=== PATIENT | female | born 1930 | race Caucasian/White ===

== ENCOUNTER 2019-06-26 01:45 | Inpatient (IN) | payer MEDICARE, OTHER ==
[~2019-06-26] VITALS: Ht 152.4 cm; Wt 55.0 kg
[2019-06-26 01:45] VITALS: Ht 152.4 cm; Wt 55.0 kg
[~2019-06-26 01:45] MED LIST: ACET325T45 PO; AMLO-145 PO; ASCO500C7 PO; ASPI-817 PO; CARV25TA79 PO; DEXA4TAB PO; DOCU250C58 PO; ESOM40CA PO; FURO20TA3 PO; GABA100C14 PO; HYDR-4012 PO; LEVO-86 PO; LOSA100T15 PO; MINE3.5O31 BOTH EYES; MULT-506 PO; SENN-120 PO; TRAM50TA PO
[2019-06-26] MEDS ORDERED: ALBUTEROL/IPRATROPIUM (NEB) 3 ML AMP HHN STA (01:53)
[2019-06-26] MEDS ORDERED: SOD CHLORIDE 0.9% 1,000 ML IV STA (01:54)
[2019-06-26] MEDS ORDERED: CEFEPIME 2GM/50 ML (PMX) 50 ML IVPB STA (01:54)
[2019-06-26] MEDS ORDERED: VANCOMYCIN 1 GM (PMX) 250 ML IVPB ONE (02:00)
--- NOTE | 2019-06-26 03:45 | ERD ---
ER Documentation Chief Complaint Chief Complaint BIB RA 100, C/O SOB, FEVER X TODAY HPI This is a 88-year-old female who was sent from a SNF because of a fever today with cough and shortness of breath. She apparently had low O2 sats in the mid 80s and is why EMS was called. The patient is not in acute respiratory distress, she tells me she is had a cough and difficulty breathing tonight, no chest pain no GI symptoms ROS All systems reviewed and are negative except as per history of present illness. Allergies Allergies: Coded Allergies: No Known Allergy (Unverified , 06/26/19) PMhx/Soc Hx Respiratory Disorders: Yes (ASTHMA) Hx Cardiac Disorders: Yes (HTN, CHF, AVR) Hx Miscellaneous Medical Probl: Yes (ANEMIA, CANCER) Hx Alcohol Use: No Hx Substance Use: No Hx Tobacco Use: No Smoking Status: Never smoker FmHx Family History: No coronary disease Physical Exam Vitals Vital Signs Date Temp Pulse Resp B/P (MAP) Pulse Ox O2 O2 Flow FiO2 Time Delivery Rate 06/26/19 69 20 100 Non 15.0 02:36 Rebreather Mask 06/26/19 97.7 57 24 89/45 (60) 97 Non 15.0 02:30 Rebreather 06/26/19 97 15.0 100 01:57 06/26/19 Non 15 01:47 Rebreather 06/26/19 97.2 62 26 88/53 (65) 100 01:45 Physical Exam Const: Well-developed, well-nourished Head: Atraumatic, normocephalic Eyes: Normal Conjunctiva, PERRLA, EOMI, normal sclera, no nystagmus ENT: Normal External Ears, Nose and Mouth, moist mucus membranes. Neck: Full range of motion. No meningismus, no lymphadenopathy. Resp: Mild increased work of breathing, bilateral diffuse coarse rhonchi o wheezing, rhonchi, rales] Cardio: Regular rate and rhythm, no murmurs, S1 S2 present Abd: Soft, non tender x 4, non distended. Normal bowel sounds, no guarding or rebound, no pulsitile abdominal masses or bruits Skin: No petechiae or rashes, no ecchymosis , no maculopapular rash Back: No midline or flank tenderness Ext: No cyanosis, or edema, FROM x 4, normal inspection, neurovascularly intact x 4 Neur: Awake and alert, STR 5/5 x 4, sensation intact x 4, no focal findings, cerebellum intact Psych: Normal Mood and Affect Result Diagram: 06/26/19 0155 06/26/19 0155 Results 24 hrs Laboratory Tests Test 06/26/19 01:52 06/26/19 01:55 POC Venous Lactate 0.6 mmol/L White Blood Count 4.9 10^3/ul Red Blood Count 2.35 10^6/ul Hemoglobin 7.7 g/dl Hematocrit 24.0 % Mean Corpuscular Volume 102.1 fl Mean Corpuscular Hemoglobin 32.8 pg Mean Corpuscular Hemoglobin Concent 32.1 g/dl Red Cell Distribution Width 15.9 % Platelet Count 90 10^3/UL Mean Platelet Volume 8.7 fl Immature Granulocytes % 0.400 % Neutrophils % % Segmented Neutrophils % (Manual) 30 % Band Neutrophils % (Manual) 26 % Lymphocytes % % Lymphocytes % (Manual) 24 % Monocytes % % Monocytes % (Manual) 15 % Eosinophils % % Basophils % % Basophils % (Manual) 1 % Metamyelocytes % (manual) 1 % Myelocytes % (Manual) 1 % Plasma Cells % (manual) 1 % Nucleated Red Blood Cells % 0.0 /100WBC Immature Granulocytes # 0.020 10^3/ul Neutrophils # 10^3/ul Neutrophils # (Manual) 1.5 10^3/ul Band Neutrophils # 1.2 10^3/ul Lymphocytes (Manual) 1.1 10^3/ul Lymphocytes # 10^3/ul Monocytes # 10^3/ul Monocytes # (Manual) 0.7 10^3/ul Eosinophils # 10^3/ul Basophils # 10^3/ul Basophils # (Manual) 0.0 10^3/ul Metamyelocytes # 0.0 10^3/ul Myelocytes # 0.0 10^3/ul Plasma Cells # (manual) 0.0 10^3/ul Nucleated Red Blood Cells # 10^3/ul Platelet Estimate DECREASED Polychromasia 1+ Poikilocytosis 1+ Ovalocytes 1+ Prothrombin Time 17.4 Sec Prothrombin Time Ratio 1.4 INR International Normalized Ratio 1.41 Activated Partial Thromboplast Time 44.1 Sec Sodium Level 135 mmol/L Potassium Level 3.8 mmol/L Chloride Level 102 mmol/L Carbon Dioxide Level 31 mmol/L Anion Gap 2 Blood Urea Nitrogen 28 mg/dl Creatinine 0.89 mg/dl Est Glomerular Filtrat Rate mL/min mL/min Glucose Level 123 mg/dl Calcium Level 7.7 mg/dl Total Bilirubin 0.6 mg/dl Direct Bilirubin 0.00 mg/dl Indirect Bilirubin 0.6 mg/dl Aspartate Amino Transf (AST/SGOT) 18 IU/L Alanine Aminotransferase (ALT/SGPT) 20 IU/L Alkaline Phosphatase 67 IU/L Troponin I < 0.012 ng/ml B-Type Natriuretic Peptide 2450 PG/ML Total Protein 5.9 g/dl Albumin 2.3 g/dl Globulin 3.60 g/dl Albumin/Globulin Ratio 0.63 Current Medications Medications Dose Sig/Suma Start Time Status Last (Trade) Ordered Route PRN Stop Time Admin Dose Reason Admin Albuterol/ 3 ml ONCE STAT 06/26/19 DC 06/26/19 Ipratropium HHN 01:53 06/26/19 02:35 (Duoneb) 02:21 Cefepime HCl 50 ml @ ONCE STAT 06/26/19 DC 06/26/19 100 mls/hr IVPB 01:54 06/26/19 02:17 02:23 Vancomycin 250 ml @ ONCE ONCE 06/26/19 06/26/19 HCl 125 mls/hr IVPB 02:00 06/26/19 02:46 03:59 Sodium 1,000 ml @ Q1H STAT 06/26/19 DC 06/26/19 Chloride 1,000 mls/hr IV 01:54 06/26/19 02:17 02:53 Procedures/MDM [place] [id number] Radiology Main Line: [phone] DIAGNOSTIC IMAGING REPORT Patient: SHAY RODRIGUEZ : 1930 Age: 88 Sex: F MR #: [id number] DOS: 06/26/19 0154 Ordering MD: ADÁN MONROE DO Location: E/R Room/Bed: PROCEDURE: XR Chest. CLINICAL INDICATION: Sepsis. TECHNIQUE: Single frontal view of the chest. COMPARISON: None. FINDINGS: Cardiomegaly and atherosclerotic calcifications in the thoracic aorta. Bilateral lung base atelectasis versus airspace disease with small pleural effusion. Findings are compatible with bilateral lung base pneumonias, right greater than left. No signs of pneumothorax are seen. Demineralization limits evaluation of fine osseous detail. Otherwise, the osseous structures and soft tissues are unremarkable. IMPRESSION: 1. Bilateral lung base atelectasis versus airspace disease with bilateral small pleural effusions. 2. Airspace disease is right greater than left, and differential considerations include bilateral lung base pneumonias. RPTAT: [facility]U Physician Teri Date Time Electronically viewed and signed by Jonathan Glynn Physician on 06/26/2019 03:05 RS/ CC: ADÁN MONROE DO [id number] EKG: Rate/Rhythm: Normal Sinus Rhythm,NL intervals QRS, ST, QT: NORMAL [place], QRS, QT] Impression: NORMAL EKG Patient has pneumonia. She had blood cultures and was given cefepime and Vanco, her lactic acid is 0.6 will admit to the hospital for pneumonia And hypoxia Departure Diagnosis: Primary Impression: Pneumonia Pneumonia type: due to unspecified organism Laterality: bilateral Lung location: lower lobe of lung Qualified Codes: J18.1 - Lobar pneumonia, unspecified organism Additional Impression: Hypoxia Condition: Stable ADÁN MONROE DO Jun 26, 2019 03:45
[2019-06-26] MEDS ORDERED: ONDANSETRON 4 MG INJ IV PRN ×2 (04:00→10:00)
[2019-06-26] MEDS ORDERED: ACETAMINOPHEN 325 MG TAB PO PRN (04:00)
[2019-06-26] MEDS ORDERED: SOD CHLORIDE 0.9% 1,000 ML IV SCH (09:38)
--- NOTE | 2019-06-26 09:54 | HP ---
Date/Time of Note Date/Time of Note DATE: 06/26/19 TIME: 09:48 Assessment/Plan VTE Prophylaxis Pharmacological prophylaxis: heparin Lines/Catheters IV Catheter Type (from Nrsg): Saline Lock Assessment/Plan Assessment/Plan 1. Hypoxic respiratory failure: Secondary to healthcare associated pneumonia -Patient also with history of asthma -Check ABG -IV antibiotic -Supplemental oxygen, bronchodilators. -Pulmonary to see 2. Hypotension: Resolved. Likely from dehydration. Patient also severely anemic -According to the son, Yeyo, patient takes " a bunch of blood pressure medications". He will be in the hospital, so during the day need to find out list of her medications -IV fluid -Treat pneumonia -Transfuse PRBCs 3. Normocytic anemia -FOBT, ferritin/iron to work-up for GI bleed and iron deficiency -GI consult 4. History of CHF -Check 2D echo 5. Multiple myeloma -According to patient's son, patient takes Palmaris for 21 days alternating with dexamethasone -Oncology/hematology consult during the day -Pain management. Patient has fentanyl patch 6. Thrombocytopenia: No need to transfuse -No obvious active 7. History of AVR: Per son only takes aspirin and no blood thinner Result Diagram: 06/26/19 0155 06/26/19 0155 Results 24hrs Laboratory Tests Test 06/26/19 01:52 06/26/19 01:55 POC Venous Lactate 0.6 White Blood Count 4.9 Red Blood Count 2.35 L Hemoglobin 7.7 L Hematocrit 24.0 L Mean Corpuscular Volume 102.1 H Mean Corpuscular Hemoglobin 32.8 Mean Corpuscular Hemoglobin Concent 32.1 Red Cell Distribution Width 15.9 H Platelet Count 90 L Mean Platelet Volume 8.7 Immature Granulocytes % 0.400 Neutrophils % Segmented Neutrophils % (Manual) 30 L Band Neutrophils % (Manual) 26 H Lymphocytes % Lymphocytes % (Manual) 24 Monocytes % Monocytes % (Manual) 15 H Eosinophils % Basophils % Basophils % (Manual) 1 Metamyelocytes % (manual) 1 H Myelocytes % (Manual) 1 H Plasma Cells % (manual) 1 Nucleated Red Blood Cells % 0.0 Immature Granulocytes # 0.020 Neutrophils # Neutrophils # (Manual) 1.5 L Band Neutrophils # 1.2 H Lymphocytes (Manual) 1.1 Lymphocytes # Monocytes # Monocytes # (Manual) 0.7 Eosinophils # Basophils # Basophils # (Manual) 0.0 Metamyelocytes # 0.0 Myelocytes # 0.0 Plasma Cells # (manual) 0.0 Nucleated Red Blood Cells # Platelet Estimate DECREASED Polychromasia 1+ Poikilocytosis 1+ Ovalocytes 1+ Prothrombin Time 17.4 H Prothrombin Time Ratio 1.4 INR International Normalized Ratio 1.41 Activated Partial Thromboplast Time 44.1 H Sodium Level 135 Potassium Level 3.8 Chloride Level 102 Carbon Dioxide Level 31 Anion Gap 2 L Blood Urea Nitrogen 28 H Creatinine 0.89 Est Glomerular Filtrat Rate mL/min Glucose Level 123 Calcium Level 7.7 L Total Bilirubin 0.6 Direct Bilirubin 0.00 Indirect Bilirubin 0.6 Aspartate Amino Transf (AST/SGOT) 18 Alanine Aminotransferase (ALT/SGPT) 20 Alkaline Phosphatase 67 Troponin I < 0.012 B-Type Natriuretic Peptide 2450 H Total Protein 5.9 L Albumin 2.3 L Globulin 3.60 H Albumin/Globulin Ratio 0.63 HPI/ROS Admit Date/Time Admit Date/Time Hx of Present Illness Patient is an 88-year-old female with a history of hypertension, asthma, CHF, anemia, AVR, multiple myeloma who was sent from [facility] for hypoxia. When presented to ER, her BP was 88/53, respiratory 26. Patient was given IV fluids with improvement in her blood pressure. Patient was also hypoxic with O2 sat in the 80s and has been placed on 15 L nonrebreather mask. Chest x-ray shows Bilateral lung base atelectasis versus airspace disease with bilateral small pleural effusions and airspace disease is right greater than left, and dif ferential considerations include bilateral lung base pneumonias. She was treated with vancomycin and cefepime. Labs shows a hemoglobin of 7.7. I spoke with the patient's son, Yeyo ([phone]). He said the patient has a history of multiple myeloma for which she takes palm for 21 days, alternating with dexamethasone. Patient presented with a minimum of 7.7. He is not aware of history of anemia and a reported no GI bleed. She has a history of AVR, takes aspirin and no blood thinner. PMH/Family/Social Past Medical History Past Surgical Hx: other (see HPI) Family History Significant Family History: other (see HPI) Social History Alcohol Use: see history Smoking Status: see history Drug Use: see history Exam Constitutional: other (No acute Distress) Head: normocephalic, atraumatic Eyes: PERRL Respiratory: normal air movement Cardiovascular: nl pulses Gastrointestinal: soft Extremities: normal pulses Medications Current Medications Ondansetron HCl (Zofran Inj) 4 mg ER BRIDGE PRN IV NAUSEA/VOMITING; Start 06/26/19 at 04:00; Stop 06/27/19 at 03:59 Acetaminophen (Tylenol Tab) 650 mg ER BRIDGE PRN PO .MILD PAIN 1-3 OR TEMP; Start 06/26/19 at 04:00; Stop 06/27/19 at 03:59 Sodium Chloride 1,000 ml @ 70 mls/hr [id number] IV ; Start 06/26/19 at 09:38; Status UNV IV Flush (NS 3 ml) 3 ml PER PROTOCOL IV ; Start 06/26/19 at 10:00; Status UNV Ondansetron HCl (Zofran Inj) 4 mg Q6H PRN IV NAUSEA/VOMITING; Start 06/26/19 at 10:00; Status UNV Acetaminophen (Tylenol Tab) 650 mg Q6H PRN PO .PAIN 1-3 OR TEMP; Start 06/26/19 at 10:00; Status UNV Pantoprazole (Protonix Iv) 40 mg DAILY@06 IV ; Start 06/27/19 at 06:00; Status UNV Albuterol/ Ipratropium (Duoneb) 3 ml Q2H RESP THERAPY PRN HHN SHORTNESS OF BREATH; Start 06/26/19 at 10:00; Status UNV Vancomycin HCl (Vanco Iv Per Pharmacy) VANCOMYCIN PER PHARMACY PER PROTOCOL XX ; Start 06/27/19 at 03:00; Status UNV Cefepime HCl 50 ml @ 100 mls/hr Q12H IVPB ; Start 06/26/19 at 21:00; Status UNV Coded Allergies: No Known Allergy (Unverified , 06/26/19) Social History Smoking Status: Never smoker Exam/Review of Systems Vital Signs Vitals Vital Signs Date Temp Pulse Resp B/P (MAP) Pulse Ox O2 O2 Flow FiO2 Time Delivery Rate 06/26/19 98.1 71 24 111/50 100 High Flow 06:45 (70) Non Rebreather 06/26/19 15.0 06:00 06/26/19 100 01:57 EVETTE CARTER MD Jun 26, 2019 09:54
[2019-06-26] MEDS ORDERED: NACL 0.9% 3 ML SYG IV SCH (10:00)
[2019-06-26] MEDS: PANTOPRAZOLE 40 MG INJ IV SCH (11:00)
--- NOTE | 2019-06-26 11:04 | CONS ---
Assessment/Plan Assessment/Plan Assessment/Plan (Daily) Chest x-ray showing right upper lobe pneumonia. Assessment and recommendations; 1. Patient admitted with bilateral pneumonia with right lower lobe predominance, currently on appropriate antimicrobial regimen. 2. Prior history of AVR. 3. History of multiple myeloma. 4. Anemia and thrombocytopenia. Continue current supportive care. Obtain follow-up chest x-ray in 48 hours. Consultation Date/Type/Reason Admit Date/Time Date of Consultation: Jun 26, 2019 Type of Consult Pulmonary Patient is a pleasant 88-year-old lady who was sent over from retirement to the ER with shortness of breath and hypoxemia. Patient also was hypotensive but was fluid resuscitated with improvement in hemodynamics. Was a time I saw her in ER, patient completely awake and alert and is having lunch on bed. According to her shortness of breath is improving. Patient denies any chest pain fever. Past medical history; 1. History of AVR 2. CHF 3. Multiple myeloma Medications; reviewed Allergies; none Family history; patient lives in retirement with supportive family. Social history; patient never smoked Occupational history; patient has been a housewife Review of systems; denies any headache, seizures. Any chest pain. Shortness of breath is improving. Complains of very mild cough. Denies any abdominal pain, nausea vomiting. Denies any diarrhea or constipation. Denies any urinary symptoms. General exam; elderly woman, awake alert, currently no distress. Date/Time of Note DATE: 06/26/19 TIME: 11:01 Past Medical History Home Meds Reported Medications Artificial Tears* (Akwa Oint*) 3.5 Gm Oint, 1 APPLIC BOTH EYES TID PRN for DRY EYES, #1 TUB 06/26/19 Sennosides* (Senna Lax*) 8.6 Mg Tablet, 1 TAB PO BID, TAB Hold if loose stool. 06/26/19 Esomeprazole Mag Trihydrate (Nexium) 40 Mg Capsule.dr, 40 MG PO AC BREAKFAST, #30 CAP 06/26/19 Losartan Potassium* (Losartan Potassium*) 100 Mg Tablet, 100 MG PO DAILY, TAB Hold if SBP<110. 06/26/19 Levothyroxine Sodium* (Synthroid*) 100 Mcg Tablet, 100 MCG PO AC BREAKFAST, #30 TAB 06/26/19 Hydrocodone/Acetaminophen ([place] 7.5-325 Tablet) 1 Each Tablet, 1 EACH PO DAILY for PAIN, TAB 06/26/19 Acetaminophen* (Acetaminophen*) 325 Mg Tablet, 325 MG PO Q4H PRN for PAIN LEVEL 1-5, #30 TAB 06/26/19 Gabapentin* (Gabapentin*) 100 Mg Capsule, 100 MG PO TID, #90 CAP 06/26/19 Furosemide* (Furosemide*) 20 Mg Tablet, 20 MG PO, #30 TAB 1 tab oral Q Wednesday. 06/26/19 Docusate Sodium* (Colace*) 250 Mg Capsule, 250 MG PO BID, #60 CAP Hold if loose stool. 06/26/19 Dexamethasone* (Dexamethasone*) 4 Mg Tablet, 40 MG PO, TAB Dexamethasone 40MG oral Q Wednesday. 06/26/19 Carvedilol* (Carvedilol*) 25 Mg Tablet, 25 MG PO BID WITH MEALS, #60 TAB HOLD IF SBP<110. 06/26/19 Aspirin* (Aspirin* EC) 81 Mg Tablet.dr, 81 MG PO WITH BREAKFAST, TAB QAM WITH FOOD. 06/26/19 Amlodipine Besylate* (Amlodipine Besylate*) 5 Mg Tablet, 5 MG PO BID, #30 TAB HOLD IF SBP<110. 06/26/19 Multivitamin with Minerals (Multiple Vitamin) 1 Each Tablet, 1 EACH PO QAM, TAB 06/26/19 Ascorbic Acid* (Vitamin C*) 500 Mg Capsule.sa, 500 MG PO DAILY for 30 Days, CAP 06/26/19 Medications Current Medications Sodium Chloride 1,000 ml @ 70 mls/hr [id number] IV ; Start 06/26/19 at 09:38 IV Flush (NS 3 ml) 3 ml PER PROTOCOL IV ; Start 06/26/19 at 10:00 Ondansetron HCl (Zofran Inj) 4 mg Q6H PRN IV NAUSEA/VOMITING; Start 06/26/19 at 10:00 Acetaminophen (Tylenol Tab) 650 mg Q6H PRN PO .PAIN 1-3 OR TEMP; Start 06/26/19 at 10:00 Pantoprazole (Protonix Iv) 40 mg DAILY@06 IV ; Start 06/26/19 at 11:00 Albuterol/ Ipratropium (Duoneb) 3 ml Q2H RESP THERAPY PRN HHN SHORTNESS OF BREATH; Start 06/26/19 at 10:00 Vancomycin HCl (Vanco Iv Per Pharmacy) VANCOMYCIN PER PHARMACY PER PROTOCOL XX ; Start 06/27/19 at 03:00 Cefepime HCl 50 ml @ 100 mls/hr Q12H IVPB ; Start 06/26/19 at 14:00 Aspirin (Halfprin) 81 mg DAILY PO ; Start 06/27/19 at 09:00 Allergies: Coded Allergies: No Known Allergy (Unverified , 06/26/19) Social History Smoking Status: Never smoker Exam/Review of Systems Exam Vitals Vital Signs Date Temp Pulse Resp B/P (MAP) Pulse Ox O2 O2 Flow FiO2 Time Delivery Rate 06/26/19 98.1 71 24 111/50 100 High Flow 06:45 (70) Non Rebreather 06/26/19 15.0 06:00 06/26/19 100 01:57 Exam H EENT exam; supple neck, no JVD. No lymphadenopathy. Midline trachea. No thyromegaly. Patient has dentures in place. Pupils are midsize bilaterally. No neck masses. Chest exam; diminished breath sound lung bases upper lobes are clear S1-S2 au dible, no murmurs. Regular rhythm. There is a well-healed sternal scar. Abdomen exam; soft, nontender. No organomegaly. Bowel sounds are audible. Extremity exam; no peripheral edema clubbing. Pulses 1+. PARTS PICKER exam; no focal deficit. Results Result Diagram: 06/26/19 0155 06/26/19 0155 Results 24hrs Laboratory Tests Test 06/26/19 01:52 06/26/19 01:55 06/26/19 09:47 POC Venous Lactate 0.6 White Blood Count 4.9 Red Blood Count 2.35 L Hemoglobin 7.7 L Hematocrit 24.0 L Mean Corpuscular Volume 102.1 H Mean Corpuscular Hemoglobin 32.8 Mean Corpuscular 32.1 Hemoglobin Concent Red Cell Distribution Width 15.9 H Platelet Count 90 L Mean Platelet Volume 8.7 Immature Granulocytes % 0.400 Neutrophils % Segmented Neutrophils 30 L % (Manual) Band Neutrophils % (Manual) 26 H Lymphocytes % Lymphocytes % (Manual) 24 Monocytes % Monocytes % (Manual) 15 H Eosinophils % Basophils % Basophils % (Manual) 1 Metamyelocytes % (manual) 1 H Myelocytes % (Manual) 1 H Plasma Cells % (manual) 1 Nucleated Red Blood Cells % 0.0 Immature Granulocytes # 0.020 Neutrophils # Neutrophils # (Manual) 1.5 L Band Neutrophils # 1.2 H Lymphocytes (Manual) 1.1 Lymphocytes # Monocytes # Monocytes # (Manual) 0.7 Eosinophils # Basophils # Basophils # (Manual) 0.0 Metamyelocytes # 0.0 Myelocytes # 0.0 Plasma Cells # (manual) 0.0 Nucleated Red Blood Cells # Platelet Estimate DECREASED Polychromasia 1+ Poikilocytosis 1+ Ovalocytes 1+ Prothrombin Time 17.4 H Prothrombin Time Ratio 1.4 INR International 1.41 Normalized Ratio Activated Partial Thromboplast 44.1 H Time Sodium Level 135 Potassium Level 3.8 Chloride Level 102 Carbon Dioxide Level 31 Anion Gap 2 L Blood Urea Nitrogen 28 H Creatinine 0.89 Est Glomerular Filtrat Rate mL/min Glucose Level 123 Calcium Level 7.7 L Total Bilirubin 0.6 Direct Bilirubin 0.00 Indirect Bilirubin 0.6 Aspartate Amino 18 Transf (AST/SGOT) Alanine 20 Aminotransferase (ALT/SGPT) Alkaline Phosphatase 67 Troponin I < 0.012 B-Type Natriuretic Peptide 2450 H Total Protein 5.9 L Albumin 2.3 L Globulin 3.60 H Albumin/Globulin Ratio 0.63 Blood Gas Specimen Source Blood arterial Arterial Blood Date Drawn 06/26/2019 10:21:58 AM Arterial Blood pH 7.378 (Temp corrected) Arterial Blood pCO2 47.2 H (Temp correct) Arterial Blood pO2 97.7 H (Temp corrected) Arterial Blood HCO3 27.2 H Arterial Blood Base Excess 1.6 Arterial Blood 95.5 Oxygen Saturation Cuate Test ACCEPTAB Arterial Blood Gas Right Radial Puncture Site Arterial 0.3 Blood Carboxyhemoglobin Arterial Blood Methemoglobin 0.2 Blood Gas A-a O2 Differential 568.1 H Oxyhemoglobin Percent 95.0 Blood Gas Temperature 37.0 Blood Gas Modality MASK - NRB FiO2 100.0 Blood Gas Notified Whom RT Blood Gas Notified Time 06/26/2019 10:32:26 AM Medications Medication Current Medications Sodium Chloride 1,000 ml @ 70 mls/hr [id number] IV ; Start 06/26/19 at 09:38 IV Flush (NS 3 ml) 3 ml PER PROTOCOL IV ; Start 06/26/19 at 10:00 Ondansetron HCl (Zofran Inj) 4 mg Q6H PRN IV NAUSEA/VOMITING; Start 06/26/19 at 10:00 Acetaminophen (Tylenol Tab) 650 mg Q6H PRN PO .PAIN 1-3 OR TEMP; Start 06/26/19 at 10:00 Pantoprazole (Protonix Iv) 40 mg DAILY@06 IV ; Start 06/26/19 at 11:00 Albuterol/ Ipratropium (Duoneb) 3 ml Q2H RESP THERAPY PRN HHN SHORTNESS OF BREATH; Start 06/26/19 at 10:00 Vancomycin HCl (Vanco Iv Per Pharmacy) VANCOMYCIN PER PHARMACY PER PROTOCOL XX ; Start 06/27/19 at 03:00 Cefepime HCl 50 ml @ 100 mls/hr Q12H IVPB ; Start 06/26/19 at 14:00 Aspirin (Halfprin) 81 mg DAILY PO ; Start 06/27/19 at 09:00 AMANDA KNOX Jun 26, 2019 11:04
[2019-06-26] MEDS: CEFEPIME 1GM/50 ML (PMX) 50 ML IVPB SCH (14:18)
[2019-06-26] MEDS: ACETAMINOPHEN 325 MG TAB PO PRN (16:47)
--- NOTE | 2019-06-26 17:18 | PN ---
Date/Time of Note Date/Time of Note DATE: 06/26/19 TIME: 17:08 Assessment/Plan VTE Prophylaxis SCD applied (from Nsg): Yes Pharmacological prophylaxis: NA/contraindicated Pharm contraindication: other Lines/Catheters IV Catheter Type (from Nrsg): Saline Lock Assessment/Plan Assessment/Plan 1. Acute hypoxic respiratory failure secondary to Healthcare associated pneumonia - CXR noted and will continue on high flow. Wean as tolerated to maintain saturations >90% - Pulmonology consultation appreciated and continue current treatment. will repeat CXR in 48 hours - continue IV antibiotics and Nebs 2. Acute hypotension - improved after volume resuscitation - will d/c IVF given elevated BNP and encourage PO hydration - hold all antihypertensive medications 3. Normocytic anemia - will check iron studies and FOBT to rule out GI source - no need for transfusion at this time - patient on medication for multiple myeloma which may be contributing 4. History of heart failure - Elevated BNP noted - will check ECHO to assess EF - continue on Lasix 5. h/o Multiple myeloma - according to patient's son, patient takes Palmaris for 21 days alternating with dexamethasone. will need to touch base on what she is currently on at this time - Pain management. Patient has fentanyl patch 6. Thrombocytopenia - monitor - no need for transfusions at this time as no active bleeding appreciated 7. History of AVR - Per son only takes aspirin and no blood thinner 8. hypertension - holding home BP meds at this time and will restart as tolerated 9. Disposition - Continue monitoring in telemetry while requiring high flow Result Diagram: 06/26/19 0155 06/26/19 0155 Results 24hrs Laboratory Tests Test 06/26/19 01:52 06/26/19 01:55 06/26/19 09:47 POC Venous Lactate 0.6 White Blood Count 4.9 Red Blood Count 2.35 L Hemoglobin 7.7 L Hematocrit 24.0 L Mean Corpuscular Volume 102.1 H Mean Corpuscular Hemoglobin 32.8 Mean Corpuscular 32.1 Hemoglobin Concent Red Cell Distribution Width 15.9 H Platelet Count 90 L Mean Platelet Volume 8.7 Immature Granulocytes % 0.400 Neutrophils % Segmented Neutrophils 30 L % (Manual) Band Neutrophils % (Manual) 26 H Lymphocytes % Lymphocytes % (Manual) 24 Monocytes % Monocytes % (Manual) 15 H Eosinophils % Basophils % Basophils % (Manual) 1 Metamyelocytes % (manual) 1 H Myelocytes % (Manual) 1 H Plasma Cells % (manual) 1 Nucleated Red Blood Cells % 0.0 Immature Granulocytes # 0.020 Neutrophils # Neutrophils # (Manual) 1.5 L Band Neutrophils # 1.2 H Lymphocytes (Manual) 1.1 Lymphocytes # Monocytes # Monocytes # (Manual) 0.7 Eosinophils # Basophils # Basophils # (Manual) 0.0 Metamyelocytes # 0.0 Myelocytes # 0.0 Plasma Cells # (manual) 0.0 Nucleated Red Blood Cells # Platelet Estimate DECREASED Polychromasia 1+ Poikilocytosis 1+ Ovalocytes 1+ Prothrombin Time 17.4 H Prothrombin Time Ratio 1.4 INR International 1.41 Normalized Ratio Activated Partial Thromboplast 44.1 H Time Sodium Level 135 Potassium Level 3.8 Chloride Level 102 Carbon Dioxide Level 31 Anion Gap 2 L Blood Urea Nitrogen 28 H Creatinine 0.89 Est Glomerular Filtrat Rate mL/min Glucose Level 123 Calcium Level 7.7 L Total Bilirubin 0.6 Direct Bilirubin 0.00 Indirect Bilirubin 0.6 Aspartate Amino 18 Transf (AST/SGOT) Alanine 20 Aminotransferase (ALT/SGPT) Alkaline Phosphatase 67 Troponin I < 0.012 B-Type Natriuretic Peptide 2450 H Total Protein 5.9 L Albumin 2.3 L Globulin 3.60 H Albumin/Globulin Ratio 0.63 Blood Gas Specimen Source Blood arterial Arterial Blood Date Drawn 06/26/2019 10:21:58 AM Arterial Blood pH 7.378 (Temp corrected) Arterial Blood pCO2 47.2 H (Temp correct) Arterial Blood pO2 97.7 H (Temp corrected) Arterial Blood HCO3 27.2 H Arterial Blood Base Excess 1.6 Arterial Blood 95.5 Oxygen Saturation Cuate Test ACCEPTAB Arterial Blood Gas Right Radial Puncture Site Arterial 0.3 Blood Carboxyhemoglobin Arterial Blood Methemoglobin 0.2 Blood Gas A-a O2 Differential 568.1 H Oxyhemoglobin Percent 95.0 Blood Gas Temperature 37.0 Blood Gas Modality MASK - NRB FiO2 100.0 Blood Gas Notified Whom RT Blood Gas Notified Time 06/26/2019 10:32:26 AM Subjective 24 Hr Interval Summary Free Text/Dictation Patient more comfortable and no acute distress noted. Denies any worsening respiratory symptoms and tolerating PO intake. Per nursing, continues to remove high flow and desaturates to the 70s. Exam/Review of Systems Exam Vitals Vital Signs Date Temp Pulse Resp B/P (MAP) Pulse Ox O2 O2 Flow FiO2 Time Delivery Rate 06/26/19 93 80 15:42 06/26/19 73 20 118/48 High Flow 14:00 (71) Nasal Cannula 06/26/19 98.2 15.0 12:00 Exam General: Patient is sitting up in bed and answers questions appropriately Head: Normocephalic atraumatic Eyes: EOMI, pupils reactive to light Neck: Supple Respiratory: Coarse breath sounds bilaterally. no wheezing Cardiovascular: S1, S2, regular rate and rhythm, no obvious murmurs Gastrointestinal:soft, nontender palpation, nondistended, bowel sounds heard. no rebound or guarding Ext: Moves all extremities spontaneously. no edema appreciated Skin: No new skin lesions Results Results 24hrs Laboratory Tests Test 06/26/19 01:52 06/26/19 01:55 06/26/19 09:47 POC Venous Lactate 0.6 White Blood Count 4.9 Red Blood Count 2.35 L Hemoglobin 7.7 L Hematocrit 24.0 L Mean Corpuscular Volume 102.1 H Mean Corpuscular Hemoglobin 32.8 Mean Corpuscular 32.1 Hemoglobin Concent Red Cell Distribution Width 15.9 H Platelet Count 90 L Mean Platelet Volume 8.7 Immature Granulocytes % 0.400 Neutrophils % Segmented Neutrophils 30 L % (Manual) Band Neutrophils % (Manual) 26 H Lymphocytes % Lymphocytes % (Manual) 24 Monocytes % Monocytes % (Manual) 15 H Eosinophils % Basophils % Basophils % (Manual) 1 Metamyelocytes % (manual) 1 H Myelocytes % (Manual) 1 H Plasma Cells % (manual) 1 Nucleated Red Blood Cells % 0.0 Immature Granulocytes # 0.020 Neutrophils # Neutrophils # (Manual) 1.5 L Band Neutrophils # 1.2 H Lymphocytes (Manual) 1.1 Lymphocytes # Monocytes # Monocytes # (Manual) 0.7 Eosinophils # Basophils # Basophils # (Manual) 0.0 Metamyelocytes # 0.0 Myelocytes # 0.0 Plasma Cells # (manual) 0.0 Nucleated Red Blood Cells # Platelet Estimate DECREASED Polychromasia 1+ Poikilocytosis 1+ Ovalocytes 1+ Prothrombin Time 17.4 H Prothrombin Time Ratio 1.4 INR International 1.41 Normalized Ratio Activated Partial Thromboplast 44.1 H Time Sodium Level 135 Potassium Level 3.8 Chloride Level 102 Carbon Dioxide Level 31 Anion Gap 2 L Blood Urea Nitrogen 28 H Creatinine 0.89 Est Glomerular Filtrat Rate mL/min Glucose Level 123 Calcium Level 7.7 L Total Bilirubin 0.6 Direct Bilirubin 0.00 Indirect Bilirubin 0.6 Aspartate Amino 18 Transf (AST/SGOT) Alanine 20 Aminotransferase (ALT/SGPT) Alkaline Phosphatase 67 Troponin I < 0.012 B-Type Natriuretic Peptide 2450 H Total Protein 5.9 L Albumin 2.3 L Globulin 3.60 H Albumin/Globulin Ratio 0.63 Blood Gas Specimen Source Blood arterial Arterial Blood Date Drawn 06/26/2019 10:21:58 AM Arterial Blood pH 7.378 (Temp corrected) Arterial Blood pCO2 47.2 H (Temp correct) Arterial Blood pO2 97.7 H (Temp corrected) Arterial Blood HCO3 27.2 H Arterial Blood Base Excess 1.6 Arterial Blood 95.5 Oxygen Saturation Cuate Test ACCEPTAB Arterial Blood Gas Right Radial Puncture Site Arterial 0.3 Blood Carboxyhemoglobin Arterial Blood Methemoglobin 0.2 Blood Gas A-a O2 Differential 568.1 H Oxyhemoglobin Percent 95.0 Blood Gas Temperature 37.0 Blood Gas Modality MASK - NRB FiO2 100.0 Blood Gas Notified Whom RT Blood Gas Notified Time 06/26/2019 10:32:26 AM Medications Medication Current Medications IV Flush (NS 3 ml) 3 ml PER PROTOCOL IV ; Start 06/26/19 at 10:00 Ondansetron HCl (Zofran Inj) 4 mg Q6H PRN IV NAUSEA/VOMITING; Start 06/26/19 at 10:00 Acetaminophen (Tylenol Tab) 650 mg Q6H PRN PO .PAIN 1-3 OR TEMP Last adminis tered on 06/26/19at 16:47; Admin Dose 650 MG; Start 06/26/19 at 10:00 Pantoprazole (Protonix Iv) 40 mg DAILY@06 IV Last administered on 06/26/19at 11:00; Admin Dose 40 MG; Start 06/26/19 at 11:00 Albuterol/ Ipratropium (Duoneb) 3 ml Q2H RESP THERAPY PRN HHN SHORTNESS OF BREATH; Start 06/26/19 at 10:00 Vancomycin HCl (Vanco Iv Per Pharmacy) VANCOMYCIN PER PHARMACY PER PROTOCOL XX ; Start 06/27/19 at 03:00 Cefepime HCl 50 ml @ 100 mls/hr Q12H IVPB Last administered on 06/26/19at 14:18; Admin Dose 100 MLS/HR; Start 06/26/19 at 14:00 Aspirin (Halfprin) 81 mg DAILY PO ; Start 06/27/19 at 09:00 DEVEN PORRAS MD Jun 26, 2019 17:18
[2019-06-26] MEDS ORDERED: OCULAR LUBRICANT 3.5 GM OPH OINT BOTH EYES PRN (17:30)
[2019-06-26] MEDS ORDERED: traMADol 50 MG TAB PO PRN (17:30)
[2019-06-26 20:00] VITALS: BP 130/60; PULSE 68; PULSE 70; RESP 19
[2019-06-26 20:55] VITALS: BP 130/60; RESP 19
[2019-06-26] MEDS: GABAPENTIN 100 MG CAP PO SCH (21:04)
[2019-06-26] MEDS: DOCUSATE SODIUM 250 MG CAP PO SCH (21:04)
[2019-06-27] VITALS (7 sets, daily range): BP systolic 127–172; BP diastolic 58–81; PULSE 72–101; RESP 18–22
[2019-06-27] MEDS ORDERED: VANCOMYCIN IV PER PHARMACY XX SCH (03:00)
[2019-06-27] MEDS: CEFEPIME 1GM/50 ML (PMX) 50 ML IVPB SCH ×2 (03:03→13:29)
[2019-06-27] MEDS: VANCOMYCIN 750 MG (PMX) 250 ML IVPB SCH (03:33)
[2019-06-27] MEDS: ALBUTEROL/IPRATROPIUM (NEB) 3 ML AMP HHN PRN (05:24)
[2019-06-27] MEDS: PANTOPRAZOLE 40 MG INJ IV SCH (06:35)
[2019-06-27] MEDS: LEVOTHYROXINE 100 MCG TAB PO SCH (06:35)
[2019-06-27] MEDS: ASCORBIC ACID 500 MG TAB PO SCH (08:41)
[2019-06-27] MEDS: ASPIRIN (EC) 81 MG TAB PO SCH (08:41)
[2019-06-27] MEDS: DOCUSATE SODIUM 250 MG CAP PO SCH ×2 (08:41→21:10)
[2019-06-27] MEDS: hydrALAzine 20 MG INJ IV PRN (08:42)
[2019-06-27] MEDS: GABAPENTIN 100 MG CAP PO SCH ×3 (08:43→21:10)
[2019-06-27] MEDS ORDERED: FUROSEMIDE 20 MG TAB PO SCH (09:00)
[2019-06-27] MEDS ORDERED: POTASSIUM CHLORIDE 20 MEQ POWDER FOR ORAL SOLN PO ONE (09:00)
[2019-06-27] MEDS: AMLODIPINE 5 MG TAB PO SCH ×2 (09:56→21:10)
[2019-06-27] MEDS: LOSARTAN 50 MG TAB PO SCH (09:57)
[2019-06-27] MEDS: FENTAnyl PATCH 12 MCG/HR TRANSDERM SCH (10:07)
[2019-06-27] MEDS ORDERED: FUROSEMIDE 20 MG INJ IV SCH (10:30)
--- NOTE | 2019-06-27 12:09 | CONS ---
Consult Date/Type/Reason Admit Date/Time Jun 26, 2019 at 19:19 Initial Consult Date 06/26/19 Type of Consult Pulmonary Date/Time of Note DATE: 06/27/19 TIME: 12:06 Subjective Continues high flow 100% 25 L/min. Still has moderate secretions requiring frequent pulmonary toilet. Objective Vital Signs Date Temp Pulse Resp B/P (MAP) Pulse Ox O2 O2 Flow FiO2 Time Delivery Rate 06/27/19 97.8 97 22 150/69 98 High Flow 11:12 (96) 06/27/19 20.0 70 05:26 Intake and Output 06/26/19 06/26/19 06/27/19 1515:00 23:00 07:00 IntakeIntake Total 120 ml BalanceBalance 120 ml Exam GENERAL: Elderly appearing lady on high flow O2 VITAL SIGNS: per chart NECK: Supple. No JVD or lymphadenopathy. CARDIAC EXAM: S1, S2. No added sounds or murmurs. CHEST: Diminished air entry bilaterally ABDOMEN: Soft, nontender. No guarding or rebound. EXTREMITIES: No cyanosis, clubbing or edema. NEUROLOGIC: Generalized weakness. No focal deficits. Vent Setting Fraction of Inspired Oxygen pe: 70 Results/Medications Result Diagram: 06/27/19 0516 06/27/19 0516 Results 24 hrs Laboratory Tests Test 06/27/19 05:16 White Blood Count 6.7 # Red Blood Count 3.01 #L Hemoglobin 9.6 #L Hematocrit 30.9 #L Mean Corpuscular Volume 102.7 H Mean Corpuscular Hemoglobin 31.9 Mean Corpuscular Hemoglobin Concent 31.1 L Red Cell Distribution Width 15.7 H Platelet Count 148 # Mean Platelet Volume 8.9 Immature Granulocytes % 2.100 H Neutrophils % Segmented Neutrophils % (Manual) 39 Band Neutrophils % (Manual) 26 H Lymphocytes % Lymphocytes % (Manual) 14 L Monocytes % Monocytes % (Manual) 13 H Eosinophils % Eosinophils % (Manual) 3 Basophils % Metamyelocytes % (manual) 2 H Myelocytes % (Manual) 3 H Nucleated Red Blood Cells % 1 H Immature Granulocytes # 0.140 H Neutrophils # Neutrophils # (Manual) 2.7 Band Neutrophils # 1.7 H Lymphocytes (Manual) 0.9 Lymphocytes # Monocytes # Monocytes # (Manual) 0.8 Eosinophils # Basophils # Metamyelocytes # 0.1 H Myelocytes # 0.2 H Nucleated Red Blood Cells # Platelet Estimate NORMAL Giant Platelets 1 H Poikilocytosis 1+ Anisocytosis 1+ Macrocytosis 1+ Sodium Level 142 Potassium Level 3.5 Chloride Level 109 Carbon Dioxide Level 29 Anion Gap 4 L Blood Urea Nitrogen 18 # Creatinine 0.60 Est Glomerular Filtrat Rate mL/min Glucose Level 112 Hemoglobin A1c 5.3 Calcium Level 8.6 Magnesium Level 1.8 Iron Level 20 L Total Iron Binding Capacity 162 L Percent Iron Saturation 12 L Ferritin 298.0 H Total Bilirubin 0.4 Direct Bilirubin 0.00 Indirect Bilirubin 0.4 Aspartate Amino Transf (AST/SGOT) 12 L Alanine Aminotransferase (ALT/SGPT) 16 Alkaline Phosphatase 88 Total Protein 7.0 # Albumin 2.7 L Globulin 4.30 H Albumin/Globulin Ratio 0.62 Triglycerides Level 85 Cholesterol Level 105 LDL Cholesterol, Calculated 66 HDL Cholesterol 22 L Cholesterol/HDL Ratio 4.7 Thyroid Stimulating Hormone (TSH) 1.060 Medications Current Medications IV Flush (NS 3 ml) 3 ml PER PROTOCOL IV ; Start 06/26/19 at 10:00 Ondansetron HCl (Zofran Inj) 4 mg Q6H PRN IV NAUSEA/VOMITING; Start 06/26/19 at 10:00 Acetaminophen (Tylenol Tab) 650 mg Q6H PRN PO .PAIN 1-3 OR TEMP Last administered on 06/26/19at 16:47; Admin Dose 650 MG; Start 06/26/19 at 10:00 Pantoprazole (Protonix Iv) 40 mg DAILY@06 IV Last administered on 06/27/19at 06:35; Admin Dose 40 MG; Start 06/26/19 at 11:00 Albuterol/ Ipratropium (Duoneb) 3 ml Q2H RESP THERAPY PRN HHN SHORTNESS OF BREATH Last administered on 06/27/19at 05:24; Admin Dose 3 ML; Start 06/26/19 at 10:00 Vancomycin HCl (Vanco Iv Per Pharmacy) VANCOMYCIN PER PHARMACY PER PROTOCOL XX ; Start 06/27/19 at 03:00 Cefepime HCl 50 ml @ 100 mls/hr Q12H IVPB Last administered on 06/27/19at 03:03; Admin Dose 100 MLS/HR; Start 06/26/19 at 14:00 Aspirin (Halfprin) 81 mg DAILY PO Last administered on 06/27/19at 08:41; Admin Dose 81 MG; Start 06/27/19 at 09:00 Eye Lubricant (Akwa Oint) 1 applic TID PRN BOTH EYES DRY EYES; Start 06/26/19 at 17:30 Ascorbic Acid (Vitamin C) 500 mg DAILY PO Last administered on 06/27/19 08:41; Admin Dose 500 MG; Start 06/27/19 at 09:00 Docusate Sodium (Colace) 250 mg BID PO Last administered on 06/27/19 08:41; Admin Dose 250 MG; Start 06/26/19 at 21:00 Gabapentin (Neurontin) 100 mg TID PO Last administered on 06/27/19 08:43; Admin Dose 100 MG; Start 06/26/19 at 21:00 Levothyroxine Sodium (Synthroid) 100 mcg AC BREAKFAST PO Last administered on 06/27/19 06:35; Admin Dose 100 MCG; Start 06/27/19 at 07:00 Tramadol HCl (Ultram) 50 mg Q6H PRN PO PAIN Last administered on 06/27/19 04:12; Admin Dose 50 MG; Start 06/26/19 at 17:30 Vancomycin/Sodium Chloride 250 ml @ 125 mls/hr Q24H IVPB Last administered on 06/27/19 03:33; Admin Dose 125 MLS/HR; Start 06/27/19 at 03:00 Fentanyl (Duragesic 12 Mcg/Hr Patch) 1 patch Q72H TRANSDERM Last administered on 06/27/19 10:07; Admin Dose 1 PATCH; Start 06/27/19 at 10:00 Hydralazine HCl (Apresoline) 10 mg Q6H PRN IV HTN Last administered on 06/27/19 08:42; Admin Dose 10 MG; Start 06/27/19 at 04:00 Amlodipine Besylate (Norvasc) 5 mg BID PO Last administered on 06/27/19 09:56; Admin Dose 5 MG; Start 06/27/19 at 09:00 Carvedilol (Coreg) 25 mg BID WITH MEALS PO Last administered on 06/27/19 09:57; Admin Dose 25 MG; Start 06/27/19 at 09:00 Losartan Potassium (Cozaar) 100 mg DAILY PO Last administered on 06/27/19 09:57; Admin Dose 100 MG; Start 06/27/19 at 09:00 Miscellaneous Information (*Rx Drug Level Order Reminder*) VANCOMYCIN TROUGH 06/29 AT 0200 0200 ONCE XX ; Start 06/29/19 at 02:00; Stop 06/29/19 at 02:01 Furosemide (Lasix) 20 mg BID DIURETICS IV Last administered on 06/27/19at 11:26; Admin Dose 20 MG; Start 06/27/19 at 10:30 Ferric Sodium Gluconate Complex 125 mg/Sodium Chloride 110 ml @ 110 mls/hr DAILY@1300 IVPB ; Start 06/27/19 at 13:00; Stop 07/01/19 at 13:59 Assessment/Plan Hospital Course (Demo Recall) Assessment 1. Bilateral pneumonia and congestive cardiac failure with severe hypoxic respiratory failure 2. Possible aspiration component 3. Multiple myeloma Plan 1. Continue supplemental O2 2. Continue antibiotics and diuretics 3. aspiration precautions Consider palliative care evaluation is overall prognosis guarded MATIAS HOPE MD, [facility] Jun 27, 2019 12:09
[2019-06-27] MEDS: SOD FERRIC GLUC COMPLX 125 MG in SOD CHLORIDE 0.9% 100 ML IVPB SCH (13:28)
--- NOTE | 2019-06-27 14:55 | RADRPT ---
Echocardiogram Report Patient Name: Trav RODRIGUEZ ID: [id number] : 1930 (88y 6m)Study Date: 06/27/2019 9:18:38 AM Gender: FAccession #: [id number] Tech: Sachin Calderon [facility] Location: [address] Ref.Physician: DEVEN PORRAS Height(Cm): BSA: Weight(Kg): Quality: AdequateOrder Physician: DEVEN PORRAS Account #: Procedures: Echocardiographic Report: Transthoracic echocardiogram with complete 2D, M-Mode, and doppler examination. Indications: Evaluate Left Ventricular function. Measurements: 2D/M Mode Doppler Measurement Value Normal Range Measurement Value Normal Range LVIDd 2D 3.8 [ 3.8 - 5.2 ] cm AV Mean Brayden 1.4 [ 70.0 - 90.0 ] cm/sec LVIDs 2D 2.5 [ 2.2 - 3.5 ] cm AV Mean PG 9.0 [ 2.0 - 4.0 ] mmHg LVPWd 2D 1.0 [ 0.6 - 0.9 ] cm AV VTI 43.3 cm IVSd 2D 1.5 [ 0.6 - 0.9 ] cm LVOT Peak Brayden 1.2 [ 70.0 - 110.0 ] cm/sec AoR Diam 2D 2.4 [ 2.3 - 3.1 ] cm LVOT Peak PG 6.0 [ 2.0 - 6.0 ] mmHg EDV 2D 61.2 [ 46.0 - 106.0 ] ml MV E Peak Brayden 1.7 [ 60.0 - 130.0 ] cm/sec ESV 2D 22.1 [ 14.0 - 42.0 ] ml MV A Peak Brayden 1.9 [ 100.0 - 120.0 ] cm/sec EF 2D 63.9 [ 54.0 - 74.0 ] percent MV E/A 0.9 [ 0.8 - 1.5 ] ratio LA Dimen 2D 4.7 [ 2.7 - 3.8 ] cm MV Peak Brayden 2.3 [ 60.0 - 130.0 ] cm/sec MV Peak PG 22.0 [ 1.0 - 10.0 ] mmHg MV Mean Brayden 1.6 cm/sec MV Mean PG 12.0 mmHg MV Decel Time 218 [ 104 - 258 ] msec MV E/A 0.9 [ 0.8 - 1.5 ] ratio MV VTI 50.2 cm TR Peak Brayden 3.6 [ 100.0 - 280.0 ] cm/sec TR Peak PG 52.0 mmHg RVSP 60.0 [ 10.0 - 36.0 ] mmHg RA Pressure 8.0 mmHg Findings: Left Ventricle: Normal left ventricular systolic function. Normal left ventricular cavity size. Mild concentric left ventricular hypertrophy. Moderate basal septal hypertrophy. Ejection fraction is visually estimated at 65 %. Tissue Doppler/Mitral Doppler indices are indeterminate in this study due to the presence of mitral stenosis. Right Ventricle: Normal right ventricular size. Normal right ventricular systolic function. Left Atrium: There is severe enlargement of left atrium. Right Atrium: There is moderate enlargement of right atrium. Mitral Valve: Moderate mitral leaflet calcification. Severe mitral annular calcification. Mild mitral valve regurgitation. Moderate to severe mitral stenosis. Mitral valve Max Velocity 2.32 m/sec. MaxPG 22.00 mmHg. MeanPG 12.00 mmHg. Mitral Valve Area by PHT 1.60 cm2. Aortic Valve: Aortic Valve Bio Prosthesis. Gradients normal for valve type and size. Aortic valve Max velocity 1.99 m/sec. Max PG 15.90 mmHg. Mean PG 9.00 mmHg. Trace aortic valve regurgitation. Tricuspid Valve: The estimated Peak RVSP is 60 mmHg. There is mild to moderate tricuspid regurgitation. Pulmonic Valve: Pulmonic valve not well visualized. Pericardium: Trivial pericardial effusion. Bilateral Pleural effusion seen. Aorta: Normal aortic root. IVC: Dilated IVC with respiratory collapse consistent with elevated right atrial pressure. Conclusions: Normal left ventricular systolic function. Normal left ventricular cavity size. Mild concentric left ventricular hypertrophy. Moderate basal septal hypertrophy. Ejection fraction is visually estimated at 65 %. Tissue Doppler/Mitral Doppler indices are indeterminate in this study due to the presence of mitral stenosis. Aortic Valve Bio Prosthesis. Gradients normal for valve type and size. Severe mitral annular calcification. Moderate to severe mitral stenosis. Mitral valve Max Velocity 2.32 m/sec. MaxPG 22.00 mmHg. MeanPG 12.00 mmHg. Mitral Valve Area by PHT 1.60 cm2. There is mild to moderate tricuspid regurgitation. The estimated Peak RVSP is 60 mmHg. Dilated IVC with respiratory collapse consistent with elevated right atrial pressure. Electronically Signed By: Sumit Godwin 2019-06-27 14:55:12 PDT
--- NOTE | 2019-06-27 15:27 | PN ---
Date/Time of Note Date/Time of Note DATE: 06/27/19 TIME: 15:20 Assessment/Plan VTE Prophylaxis Risk score (from Ns)>0 risk: 5 SCD applied (from Ns): Yes Pharmacological prophylaxis: NA/contraindicated Pharm contraindication: anticoag not tolerated Lines/Catheters IV C[facility]ter [facility] (from [facility] Peripheral IV Urinary Cath still in place: No Assessment/Plan Assessment/Plan 1. Acute hypoxic respiratory failure secondary to Healthcare associated pneumonia and effusions - Repeat CXR this am shows increased pulmonary congestion and effusions - Pulmonology consultation appreciated and continue current care - CXR noted and will continue on high flow. Wean as tolerated to maintain saturations >90% - continue IV antibiotics and Nebs 2. Hypertension - will restart home medications and will adjust as needed 3. Bilateral pneumonia - IV antibiotics and neb tx - wean O2 as tolerated 4. Bilateral effusions/ pulmonary congestion - Will increase diuretics and if still causing respiratory issues, will discuss with son thoracentesis 5. Iron deficiency anemia - will start IV iron - s/p 1 unit pRBC - patient on medication for multiple myeloma which may be contributing 6. History of heart failure - Elevated BNP noted - ECHO noted with severe mitral stenosis - continue on Lasix at increased dose - if no improvement, will consult Cardiology for assistance with diuretics 7. h/o Multiple myeloma - per son, she started on therapy 6 months ago and currently on round of Palmaris. Will hold at this time given bilateral pneumonia - follows with Dr. Rick as outpatient - Pain management. Patient has fentanyl patch 8. Thrombocytopenia- resolved - monitor 9. History of AVR - continue on aspirin. seen on ECHO 10. Disposition - Will increase lasix to 40mg BID and monitor for improvement in respiratory status. If continues to decline, will consult palliative for discussion of goals of care with family Result Diagram: 06/27/19 0516 06/27/19 0516 Results 24hrs Laboratory Tests Test 06/27/19 05:16 White Blood Count 6.7 # Red Blood Count 3.01 #L Hemoglobin 9.6 #L Hematocrit 30.9 #L Mean Corpuscular Volume 102.7 H Mean Corpuscular Hemoglobin 31.9 Mean Corpuscular Hemoglobin Concent 31.1 L Red Cell Distribution Width 15.7 H Platelet Count 148 # Mean Platelet Volume 8.9 Immature Granulocytes % 2.100 H Neutrophils % Segmented Neutrophils % (Manual) 39 Band Neutrophils % (Manual) 26 H Lymphocytes % Lymphocytes % (Manual) 14 L Monocytes % Monocytes % (Manual) 13 H Eosinophils % Eosinophils % (Manual) 3 Basophils % Metamyelocytes % (manual) 2 H Myelocytes % (Manual) 3 H Nucleated Red Blood Cells % 1 H Immature Granulocytes # 0.140 H Neutrophils # Neutrophils # (Manual) 2.7 Band Neutrophils # 1.7 H Lymphocytes (Manual) 0.9 Lymphocytes # Monocytes # Monocytes # (Manual) 0.8 Eosinophils # Basophils # Metamyelocytes # 0.1 H Myelocytes # 0.2 H Nucleated Red Blood Cells # Platelet Estimate NORMAL Giant Platelets 1 H Poikilocytosis 1+ Anisocytosis 1+ Macrocytosis 1+ Sodium Level 142 Potassium Level 3.5 Chloride Level 109 Carbon Dioxide Level 29 Anion Gap 4 L Blood Urea Nitrogen 18 # Creatinine 0.60 Est Glomerular Filtrat Rate mL/min Glucose Level 112 Hemoglobin A1c 5.3 Calcium Level 8.6 Magnesium Level 1.8 Iron Level 20 L Total Iron Binding Capacity 162 L Percent Iron Saturation 12 L Ferritin 298.0 H Total Bilirubin 0.4 Direct Bilirubin 0.00 Indirect Bilirubin 0.4 Aspartate Amino Transf (AST/SGOT) 12 L Alanine Aminotransferase (ALT/SGPT) 16 Alkaline Phosphatase 88 Total Protein 7.0 # Albumin 2.7 L Globulin 4.30 H Albumin/Globulin Ratio 0.62 Triglycerides Level 85 Cholesterol Level 105 LDL Cholesterol, Calculated 66 HDL Cholesterol 22 L Cholesterol/HDL Ratio 4.7 Thyroid Stimulating Hormone (TSH) 1.060 Subjective 24 Hr Interval Summary Free Text/Dictation Patient still with respiratory distress and on 100% FIO2. Discussed plan of care with son over the phone. Exam/Review of Systems Exam Vitals Vital Signs Date Temp Pulse Resp B/P (MAP) Pulse Ox O2 O2 Flow FiO2 Time Delivery Rate 06/27/19 95 100 12:49 06/27/19 97.8 97 22 150/69 High Flow 11:12 (96) 06/27/19 20.0 05:26 Intake and Output 06/26/19 06/26/19 06/27/19 1515:00 23:00 07:00 IntakeIntake Total 120 ml BalanceBalance 120 ml Exam General: Patient is in mild respiratory distress with accessory muscle use Eyes: EOMI, pupils reactive to light Neck: Supple Respiratory: Coarse breath sounds bilaterally. no wheezing Cardiovascular: S1, S2, regular rate and rhythm, no obvious murmurs Gastrointestinal:soft, nontender palpation, nondistended, bowel sounds heard. no rebound or guarding Ext: Moves all extremities spontaneously. no edema appreciated Skin: No new skin lesions Results Results 24hrs Laboratory Tests Test 06/27/19 05:16 White Blood Count 6.7 # Red Blood Count 3.01 #L Hemoglobin 9.6 #L Hematocrit 30.9 #L Mean Corpuscular Volume 102.7 H Mean Corpuscular Hemoglobin 31.9 Mean Corpuscular Hemoglobin Concent 31.1 L Red Cell Distribution Width 15.7 H Platelet Count 148 # Mean Platelet Volume 8.9 Immature Granulocytes % 2.100 H Neutrophils % Segmented Neutrophils % (Manual) 39 Band Neutrophils % (Manual) 26 H Lymphocytes % Lymphocytes % (Manual) 14 L Monocytes % Monocytes % (Manual) 13 H Eosinophils % Eosinophils % (Manual) 3 Basophils % Metamyelocytes % (manual) 2 H Myelocytes % (Manual) 3 H Nucleated Red Blood Cells % 1 H Immature Granulocytes # 0.140 H Neutrophils # Neutrophils # (Manual) 2.7 Band Neutrophils # 1.7 H Lymphocytes (Manual) 0.9 Lymphocytes # Monocytes # Monocytes # (Manual) 0.8 Eosinophils # Basophils # Metamyelocytes # 0.1 H Myelocytes # 0.2 H Nucleated Red Blood Cells # Platelet Estimate NORMAL Giant Platelets 1 H Poikilocytosis 1+ Anisocytosis 1+ Macrocytosis 1+ Sodium Level 142 Potassium Level 3.5 Chloride Level 109 Carbon Dioxide Level 29 Anion Gap 4 L Blood Urea Nitrogen 18 # Creatinine 0.60 Est Glomerular Filtrat Rate mL/min Glucose Level 112 Hemoglobin A1c 5.3 Calcium Level 8.6 Magnesium Level 1.8 Iron Level 20 L Total Iron Binding Capacity 162 L Percent Iron Saturation 12 L Ferritin 298.0 H Total Bilirubin 0.4 Direct Bilirubin 0.00 Indirect Bilirubin 0.4 Aspartate Amino Transf (AST/SGOT) 12 L Alanine Aminotransferase (ALT/SGPT) 16 Alkaline Phosphatase 88 Total Protein 7.0 # Albumin 2.7 L Globulin 4.30 H Albumin/Globulin Ratio 0.62 Triglycerides Level 85 Cholesterol Level 105 LDL Cholesterol, Calculated 66 HDL Cholesterol 22 L Cholesterol/HDL Ratio 4.7 Thyroid Stimulating Hormone (TSH) 1.060 Medications Medication Current Medications IV Flush (NS 3 ml) 3 ml PER PROTOCOL IV ; Start 06/26/19 at 10:00 Ondansetron HCl (Zofran Inj) 4 mg Q6H PRN IV NAUSEA/VOMITING; Start 06/26/19 at 10:00 Acetaminophen (Tylenol Tab) 650 mg Q6H PRN PO .PAIN 1-3 OR TEMP Last administered on 06/26/19 16:47; Admin Dose 650 MG; Start 06/26/19 at 10:00 Pantoprazole (Protonix Iv) 40 mg DAILY@06 IV Last administered on 06/27/19 06:35; Admin Dose 40 MG; Start 06/26/19 at 11:00 Albuterol/ Ipratropium (Duoneb) 3 ml Q2H RESP THERAPY PRN HHN SHORTNESS OF BREATH Last administered on 06/27/19 05:24; Admin Dose 3 ML; Start 06/26/19 at 10:00 Vancomycin HCl (Vanco Iv Per Pharmacy) VANCOMYCIN PER PHARMACY PER PROTOCOL XX ; Start 06/27/19 at 03:00 Cefepime HCl 50 ml @ 100 mls/hr Q12H IVPB Last administered on 06/27/19 13:29; Admin Dose 100 MLS/HR; Start 06/26/19 at 14:00 Aspirin (Halfprin) 81 mg DAILY PO Last administered on 06/27/19 08:41; Admin Dose 81 MG; Start 06/27/19 at 09:00 Eye Lubricant (Akwa Oint) 1 applic TID PRN BOTH EYES DRY EYES; Start 06/26/19 at 17:30 Ascorbic Acid (Vitamin C) 500 mg DAILY PO Last administered on 06/27/19 08:41; Admin Dose 500 MG; Start 06/27/19 at 09:00 Docusate Sodium (Colace) 250 mg BID PO Last administered on 06/27/19 08:41; Admin Dose 250 MG; Start 06/26/19 at 21:00 Gabapentin (Neurontin) 100 mg TID PO Last administered on 06/27/19 13:28; Admin Dose 100 MG; Start 06/26/19 at 21:00 Levothyroxine Sodium (Synthroid) 100 mcg AC BREAKFAST PO Last administered on 06/27/19 06:35; Admin Dose 100 MCG; Start 06/27/19 at 07:00 Tramadol HCl (Ultram) 50 mg Q6H PRN PO PAIN Last administered on 06/27/19 04:12; Admin Dose 50 MG; Start 06/26/19 at 17:30 Vancomycin/Sodium Chloride 250 ml @ 125 mls/hr Q24H IVPB Last administered on 06/27/19 03:33; Admin Dose 125 MLS/HR; Start 06/27/19 at 03:00 Fentanyl (Duragesic 12 Mcg/Hr Patch) 1 patch Q72H TRANSDERM Last administered on 06/27/19 10:07; Admin Dose 1 PATCH; Start 06/27/19 at 10:00 Hydralazine HCl (Apresoline) 10 mg Q6H PRN IV HTN Last administered on 06/27/19 08:42; Admin Dose 10 MG; Start 06/27/19 at 04:00 Amlodipine Besylate (Norvasc) 5 mg BID PO Last administered on 06/27/19 09:56; Admin Dose 5 MG; Start 06/27/19 at 09:00 Carvedilol (Coreg) 25 mg BID WITH MEALS PO Last administered on 06/27/19 09:57; Admin Dose 25 MG; Start 06/27/19 at 09:00 Losartan Potassium (Cozaar) 100 mg DAILY PO Last administered on 06/27/19 09:57; Admin Dose 100 MG; Start 06/27/19 at 09:00 Miscellaneous Information (*Rx Drug Level Order Reminder*) VANCOMYCIN TROUGH 06/29 AT 0200 0200 ONCE XX ; Start 06/29/19 at 02:00; Stop 06/29/19 at 02:01 Ferric Sodium Gluconate Complex 125 mg/Sodium Chloride 110 ml @ 110 mls/hr DAILY@1300 IVPB Last administered on 06/27/19 13:28; Admin Dose 110 MLS/HR; Start 06/27/19 at 13:00; Stop 07/01/19 at 13:59 Furosemide (Lasix) 40 mg BID DIURETICS IV ; Start 06/27/19 at 18:00 DEVEN PORRAS MD Jun 27, 2019 15:27
[2019-06-27] MEDS: FUROSEMIDE 40 MG INJ IV SCH (19:03)
[2019-06-28] VITALS: BP 131/61; PULSE 72; RESP 18
[2019-06-28] MEDS: CEFEPIME 1GM/50 ML (PMX) 50 ML IVPB SCH ×2 (02:22→13:01)
[2019-06-28] MEDS: VANCOMYCIN 750 MG (PMX) 250 ML IVPB SCH (02:54)
[2019-06-28 04:00] VITALS: BP 129/64; PULSE 101; RESP 19
[2019-06-28] MEDS: FUROSEMIDE 40 MG INJ IV SCH ×2 (05:23→17:34)
[2019-06-28] MEDS: PANTOPRAZOLE 40 MG INJ IV SCH (05:23)
[2019-06-28] MEDS: LEVOTHYROXINE 100 MCG TAB PO SCH (05:31)
[2019-06-28 07:44] VITALS: BP 159/69; PULSE 77; RESP 22
[2019-06-28] MEDS ORDERED: POTASSIUM CHLORIDE 20 MEQ POWDER FOR ORAL SOLN PO ONE (09:00)
[2019-06-28] MEDS ORDERED: MAGNESIUM SULFATE 2 GM/50 ML 50 ML IVPB ONE (09:00)
[2019-06-28] MEDS ORDERED: POTASSIUM CHLORIDE 100 ML IVPB ONE (09:00)
[2019-06-28] MEDS: DOCUSATE SODIUM 250 MG CAP PO SCH ×2 (09:34→21:17)
[2019-06-28] MEDS: ASCORBIC ACID 500 MG TAB PO SCH (09:34)
[2019-06-28] MEDS: AMLODIPINE 5 MG TAB PO SCH ×2 (09:35→21:18)
[2019-06-28] MEDS: GABAPENTIN 100 MG CAP PO SCH ×3 (09:36→21:18)
[2019-06-28] MEDS: ASPIRIN (EC) 81 MG TAB PO SCH (09:36)
[2019-06-28] MEDS: LOSARTAN 50 MG TAB PO SCH (09:36)
--- NOTE | 2019-06-28 10:27 | PN ---
Date/Time of Note Date/Time of Note DATE: 06/28/19 TIME: 10:22 Assessment/Plan VTE Prophylaxis Risk score (from Ns)>0 risk: 4 SCD applied (from Ns): Yes Pharmacological prophylaxis: NA/contraindicated Pharm contraindication: anticoag not tolerated Lines/Catheters IV Catheter Type (from [facility]): Peripheral IV Urinary Cath still in place: No Assessment/Plan Assessment/Plan 1. Acute hypoxic respiratory failure secondary to Healthcare associated pneumonia and pleural effusions - continues on high flow but FIO2 decreased to 80%. Wean as tolerated to maintain saturations >90% - Pulmonology consultation appreciated and will continue current care. Appears more comfortable after increase in Lasix dose yesterday - continue IV antibiotics and Nebs 2. Hypertension - stable after home medications restarted - continue to monitor and adjust as needed 3. Bilateral pneumonia - IV antibiotics and neb tx - wean O2 as tolerated 4. Bilateral effusions/ pulmonary congestion - most likely secondary to MV stenosis. Will most likely need replacement and will discuss with son since has had AVR in past - Continue monitoring I/O and will repeat CXR tomorrow. If still with moderate effusions, may need thoracentesis 5. Iron deficiency anemia - hgb improving after IV iron and PRBC given - patient on medication for multiple myeloma which may be contributing to anemia 6. History of heart failure - Elevated BNP noted - ECHO noted with severe mitral stenosis - monitoring daily weights, I/O - continue on Lasix at increased dose 7. h/o Multiple myeloma - per son, she started on therapy 6 months ago and currently on round of Palmaris. Will hold at this time given bilateral pneumonia - follows with Dr. Rick as outpatient - Pain management. Patient has fentanyl patch 8. Thrombocytopenia- stable - monitor 9. History of AVR - continue on aspirin. seen on ECHO 10. Disposition - Continue weaning down O2 as tolerated and will recheck CXR tomorrow Result Diagram: 06/28/1952606/28/19526 Results 24hrs Laboratory Tests Test 06/28/19 05:27 White Blood Count 10.0 # Red Blood Count 3.86 #L Hemoglobin 11.8 #L Hematocrit 37.4 # Mean Corpuscular Volume 96.9 Mean Corpuscular Hemoglobin 30.6 Mean Corpuscular Hemoglobin Concent 31.6 L Red Cell Distribution Width 19.6 #H Platelet Count 116 #L Mean Platelet Volume 8.8 Immature Granulocytes % 1.700 H Neutrophils % Segmented Neutrophils % (Manual) 46 Band Neutrophils % (Manual) 29 H Lymphocytes % Lymphocytes % (Manual) 11 L Reactive Lymphocytes % (Manual) 5 H Monocytes % Monocytes % (Manual) 5 Eosinophils % Eosinophils % (Manual) 1 Basophils % Metamyelocytes % (manual) 1 H Myelocytes % (Manual) 2 H Nucleated Red Blood Cells % 0.0 Immature Granulocytes # 0.170 H Neutrophils # Neutrophils # (Manual) 4.9 Band Neutrophils # 2.9 H Lymphocytes (Manual) 1.1 Lymphocytes # Reactive Lymphocytes # 0.5 H Monocytes # Monocytes # (Manual) 0.5 Eosinophils # Basophils # Metamyelocytes # 0.1 H Myelocytes # 0.2 H Nucleated Red Blood Cells # Platelet Estimate DECREASED Anisocytosis 1+ Macrocytosis 1+ Ovalocytes 1+ Sodium Level 140 Potassium Level 2.9 *L Chloride Level 102 Carbon Dioxide Level 35 H Anion Gap 3 L Blood Urea Nitrogen 15 Creatinine 0.58 Glucose Level 138 Calcium Level 8.4 Phosphorus Level 2.9 Magnesium Level 1.6 L Albumin 2.7 L Subjective 24 Hr Interval Summary Free Text/Dictation Patient resting this am and in no acute respiratory distress. No overnight events noted. Exam/Review of Systems Exam Vitals Vital Signs Date Temp Pulse Resp B/P (MAP) Pulse Ox O2 O2 Flow FiO2 Time Delivery Rate 06/28/19 97.5 77 22 159/69 95 High Flow 07:44 (99) 06/28/19 100 04:32 06/27/19 25.0 20:01 Intake and Output 06/27/19 06/27/19 06/28/19 1515:00 23:00 07:00 IntakeIntake Total 610 ml 120 ml 120 ml BalanceBalance 610 ml 120 ml 120 ml Exam General: Patient in no acute distress. remains on high flow Neck: Supple Respiratory: Coarse breath sounds bilaterally. no wheezing Cardiovascular: S1, S2, regular rate and rhythm, no obvious murmurs Gastrointestinal:soft, nontender palpation, nondistended, bowel sounds heard. no rebound or guarding Ext: Moves all extremities spontaneously. no edema appreciated Skin: No new skin lesions Results Results 24hrs Laboratory Tests Test 06/28/19 05:27 White Blood Count 10.0 # Red Blood Count 3.86 #L Hemoglobin 11.8 #L Hematocrit 37.4 # Mean Corpuscular Volume 96.9 Mean Corpuscular Hemoglobin 30.6 Mean Corpuscular Hemoglobin Concent 31.6 L Red Cell Distribution Width 19.6 #H Platelet Count 116 #L Mean Platelet Volume 8.8 Immature Granulocytes % 1.700 H Neutrophils % Segmented Neutrophils % (Manual) 46 Band Neutrophils % (Manual) 29 H Lymphocytes % Lymphocytes % (Manual) 11 L Reactive Lymphocytes % (Manual) 5 H Monocytes % Monocytes % (Manual) 5 Eosinophils % Eosinophils % (Manual) 1 Basophils % Metamyelocytes % (manual) 1 H Myelocytes % (Manual) 2 H Nucleated Red Blood Cells % 0.0 Immature Granulocytes # 0.170 H Neutrophils # Neutrophils # (Manual) 4.9 Band Neutrophils # 2.9 H Lymphocytes (Manual) 1.1 Lymphocytes # Reactive Lymphocytes # 0.5 H Monocytes # Monocytes # (Manual) 0.5 Eosinophils # Basophils # Metamyelocytes # 0.1 H Myelocytes # 0.2 H Nucleated Red Blood Cells # Platelet Estimate DECREASED Anisocytosis 1+ Macrocytosis 1+ Ovalocytes 1+ Sodium Level 140 Potassium Level 2.9 *L Chloride Level 102 Carbon Dioxide Level 35 H Anion Gap 3 L Blood Urea Nitrogen 15 Creatinine 0.58 Glucose Level 138 Calcium Level 8.4 Phosphorus Level 2.9 Magnesium Level 1.6 L Albumin 2.7 L Medications Medication Current Medications IV Flush (NS 3 ml) 3 ml PER PROTOCOL IV ; Start 06/26/19 at 10:00 Ondansetron HCl (Zofran Inj) 4 mg Q6H PRN IV NAUSEA/VOMITING; Start 06/26/19 at 10:00 Acetaminophen (Tylenol Tab) 650 mg Q6H PRN PO .PAIN 1-3 OR TEMP Last administered on 06/26/19at 16:47; Admin Dose 650 MG; Start 06/26/19 at 10:00 Pantoprazole (Protonix Iv) 40 mg DAILY@06 IV Last administered on 06/28/19at 05:23; Admin Dose 40 MG; Start 06/26/19 at 11:00 Albuterol/ Ipratropium (Duoneb) 3 ml Q2H RESP THERAPY PRN HHN SHORTNESS OF BREATH Last administered on 06/27/19at 05:24; Admin Dose 3 ML; Start 06/26/19 at 10:00 Vancomycin HCl (Vanco Iv Per Pharmacy) VANCOMYCIN PER PHARMACY PER PROTOCOL XX ; Start 06/27/19 at 03:00 Cefepime HCl 50 ml @ 100 mls/hr Q12H IVPB Last administered on 06/28/19 02:22; Admin Dose 100 MLS/HR; Start 06/26/19 at 14:00 Aspirin (Halfprin) 81 mg DAILY PO Last administered on 06/28/19 09:36; Admin Dose 81 MG; Start 06/27/19 at 09:00 Eye Lubricant (Akwa Oint) 1 applic TID PRN BOTH EYES DRY EYES; Start 06/26/19 at 17:30 Ascorbic Acid (Vitamin C) 500 mg DAILY PO Last administered on 06/28/19 09:34; Admin Dose 500 MG; Start 06/27/19 at 09:00 Docusate Sodium (Colace) 250 mg BID PO Last administered on 06/28/19 09:34; Admin Dose 250 MG; Start 06/26/19 at 21:00 Gabapentin (Neurontin) 100 mg TID PO Last administered on 06/28/19 09:36; Admin Dose 100 MG; Start 06/26/19 at 21:00 Levothyroxine Sodium (Synthroid) 100 mcg AC BREAKFAST PO Last administered on 06/28/19 05:31; Admin Dose 100 MCG; Start 06/27/19 at 07:00 Tramadol HCl (Ultram) 50 mg Q6H PRN PO PAIN Last administered on 06/27/19 04:12; Admin Dose 50 MG; Start 06/26/19 at 17:30 Vancomycin/Sodium Chloride 250 ml @ 125 mls/hr Q24H IVPB Last administered on 06/28/19 02:54; Admin Dose 125 MLS/HR; Start 06/27/19 at 03:00 Fentanyl (Duragesic 12 Mcg/Hr Patch) 1 patch Q72H TRANSDERM Last administered on 06/27/19 10:07; Admin Dose 1 PATCH; Start 06/27/19 at 10:00 Hydralazine HCl (Apresoline) 10 mg Q6H PRN IV HTN Last administered on 06/27/19 08:42; Admin Dose 10 MG; Start 06/27/19 at 04:00 Amlodipine Besylate (Norvasc) 5 mg BID PO Last administered on 06/28/19 09:35; Admin Dose 5 MG; Start 06/27/19 at 09:00 Carvedilol (Coreg) 25 mg BID WITH MEALS PO Last administered on 06/28/19 09:34; Admin Dose 25 MG; Start 06/27/19 at 09:00 Losartan Potassium (Cozaar) 100 mg DAILY PO Last administered on 06/28/19 09:36; Admin Dose 100 MG; Start 06/27/19 at 09:00 Miscellaneous Information (*Rx Drug Level Order Reminder*) VANCOMYCIN TROUGH 06/29 AT 0200 0200 ONCE XX ; Start 06/29/19 at 02:00; Stop 06/29/19 at 02:01 Ferric Sodium Gluconate Complex 125 mg/Sodium Chloride 110 ml @ 110 mls/hr DAILY@1300 IVPB Last administered on 06/27/19at 13:28; Admin Dose 110 MLS/HR; Start 06/27/19 at 13:00; Stop 07/01/19 at 13:59 Furosemide (Lasix) 40 mg BID DIURETICS IV Last administered on 06/28/19 05:23; Admin Dose 40 MG; Start 06/27/19 at 18:00 Potassium Chloride 100 ml @ 50 mls/hr ONCE ONCE IVPB Last administered on 06/28/19at 09:36; Admin Dose 50 MLS/HR; Start 06/28/19 at 09:00; Stop 06/28/19 at 10:59 Magnesium Sulfate 50 ml @ 25 mls/hr ONCE ONCE IVPB Last administered on 06/28/19at 09:37; Admin Dose 25 MLS/HR; Start 06/28/19 at 09:00; Stop 06/28/19 at 10:59 DEVEN PORRAS MD Jun 28, 2019 10:27
[2019-06-28 11:48] VITALS: BP 126/65; PULSE 65; RESP 22
[2019-06-28] MEDS: SOD FERRIC GLUC COMPLX 125 MG in SOD CHLORIDE 0.9% 100 ML IVPB SCH (13:00)
--- NOTE | 2019-06-28 15:18 | CONS ---
Consult Date/Type/Reason Admit Date/Time Jun 26, 2019 at 19:19 Initial Consult Date 06/26/19 Type of Consult Pulmonary Date/Time of Note DATE: 06/28/19 TIME: 15:17 Subjective Slight improvement today. FiO2 decreased to 80%. Objective Vital Signs Date Temp Pulse Resp B/P (MAP) Pulse Ox O2 O2 Flow FiO2 Time Delivery Rate 06/28/19 92 80 13:16 06/28/19 97.5 65 22 126/65 High Flow 11:48 (85) 06/28/19 10.0 10:00 Intake and Output 06/27/19 06/27/19 06/28/19 1515:00 23:00 07:00 IntakeIntake Total 610 ml 120 ml 120 ml BalanceBalance 610 ml 120 ml 120 ml Exam GENERAL: Elderly appearing lady on high flow O2 VITAL SIGNS: per chart NECK: Supple. No JVD or lymphadenopathy. CARDIAC EXAM: S1, S2. No added sounds or murmurs. CHEST: Diminished air entry bilaterally ABDOMEN: Soft, nontender. No guarding or rebound. EXTREMITIES: No cyanosis, clubbing or edema. NEUROLOGIC: Generalized weakness. No focal deficits. Vent Setting Fraction of Inspired Oxygen pe: 80 Results/Medications Result Diagram: 06/28/19 0527 06/28/19 1407 Results 24 hrs Laboratory Tests Test 06/28/19 05:27 06/28/19 14:07 White Blood Count 10.0 # Red Blood Count 3.86 #L Hemoglobin 11.8 #L Hematocrit 37.4 # Mean Corpuscular Volume 96.9 Mean Corpuscular Hemoglobin 30.6 Mean Corpuscular Hemoglobin Concent 31.6 L Red Cell Distribution Width 19.6 #H Platelet Count 116 #L Mean Platelet Volume 8.8 Immature Granulocytes % 1.700 H Neutrophils % Segmented Neutrophils % (Manual) 46 Band Neutrophils % (Manual) 29 H Lymphocytes % Lymphocytes % (Manual) 11 L Reactive Lymphocytes % (Manual) 5 H Monocytes % Monocytes % (Manual) 5 Eosinophils % Eosinophils % (Manual) 1 Basophils % Metamyelocytes % (manual) 1 H Myelocytes % (Manual) 2 H Nucleated Red Blood Cells % 0.0 Immature Granulocytes # 0.170 H Neutrophils # Neutrophils # (Manual) 4.9 Band Neutrophils # 2.9 H Lymphocytes (Manual) 1.1 Lymphocytes # Reactive Lymphocytes # 0.5 H Monocytes # Monocytes # (Manual) 0.5 Eosinophils # Basophils # Metamyelocytes # 0.1 H Myelocytes # 0.2 H Nucleated Red Blood Cells # Platelet Estimate DECREASED Anisocytosis 1+ Macrocytosis 1+ Ovalocytes 1+ Sodium Level 140 Potassium Level 2.9 *L 3.4 L Chloride Level 102 Carbon Dioxide Level 35 H Anion Gap 3 L Blood Urea Nitrogen 15 Creatinine 0.58 Glucose Level 138 Calcium Level 8.4 Phosphorus Level 2.9 Magnesium Level 1.6 L Albumin 2.7 L Medications Current Medications IV Flush (NS 3 ml) 3 ml PER PROTOCOL IV ; Start 06/26/19 at 10:00 Ondansetron HCl (Zofran Inj) 4 mg Q6H PRN IV NAUSEA/VOMITING; Start 06/26/19 at 10:00 Acetaminophen (Tylenol Tab) 650 mg Q6H PRN PO .PAIN 1-3 OR TEMP Last administered on 06/26/19at 16:47; Admin Dose 650 MG; Start 06/26/19 at 10:00 Pantoprazole (Protonix Iv) 40 mg DAILY@06 IV Last administered on 06/28/19at 05:23; Admin Dose 40 MG; Start 06/26/19 at 11:00 Albuterol/ Ipratropium (Duoneb) 3 ml Q2H RESP THERAPY PRN HHN SHORTNESS OF BREATH Last administered on 06/27/19at 05:24; Admin Dose 3 ML; Start 06/26/19 at 10:00 Vancomycin HCl (Vanco Iv Per Pharmacy) VANCOMYCIN PER PHARMACY PER PROTOCOL XX ; Start 06/27/19 at 03:00 Cefepime HCl 50 ml @ 100 mls/hr Q12H IVPB Last administered on 06/28/19at 13:01; Admin Dose 100 MLS/HR; Start 06/26/19 at 14:00 Aspirin (Halfprin) 81 mg DAILY PO Last administered on 06/28/19at 09:36; Admin Dose 81 MG; Start 06/27/19 at 09:00 Eye Lubricant (Akwa Oint) 1 applic TID PRN BOTH EYES DRY EYES; Start 06/26/19 at 17:30 Ascorbic Acid (Vitamin C) 500 mg DAILY PO Last administered on 06/28/19at 09:34; Admin Dose 500 MG; Start 06/27/19 at 09:00 Docusate Sodium (Colace) 250 mg BID PO Last administered on 06/28/19 09:34; Admin Dose 250 MG; Start 06/26/19 at 21:00 Gabapentin (Neurontin) 100 mg TID PO Last administered on 06/28/19 13:00; Admin Dose 100 MG; Start 06/26/19 at 21:00 Levothyroxine Sodium (Synthroid) 100 mcg AC BREAKFAST PO Last administered on 06/28/19 05:31; Admin Dose 100 MCG; Start 06/27/19 at 07:00 Tramadol HCl (Ultram) 50 mg Q6H PRN PO PAIN Last administered on 06/27/19 04:12; Admin Dose 50 MG; Start 06/26/19 at 17:30 Vancomycin/Sodium Chloride 250 ml @ 125 mls/hr Q24H IVPB Last administered on 06/28/19 02:54; Admin Dose 125 MLS/HR; Start 06/27/19 at 03:00 Fentanyl (Duragesic 12 Mcg/Hr Patch) 1 patch Q72H TRANSDERM Last administered on 06/27/19 10:07; Admin Dose 1 PATCH; Start 06/27/19 at 10:00 Hydralazine HCl (Apresoline) 10 mg Q6H PRN IV HTN Last administered on 06/27/19 08:42; Admin Dose 10 MG; Start 06/27/19 at 04:00 Amlodipine Besylate (Norvasc) 5 mg BID PO Last administered on 06/28/19 09:35; Admin Dose 5 MG; Start 06/27/19 at 09:00 Carvedilol (Coreg) 25 mg BID WITH MEALS PO Last administered on 06/28/19 09:34; Admin Dose 25 MG; Start 06/27/19 at 09:00 Losartan Potassium (Cozaar) 100 mg DAILY PO Last administered on 06/28/19 09:36; Admin Dose 100 MG; Start 06/27/19 at 09:00 Miscellaneous Information (*Rx Drug Level Order Reminder*) VANCOMYCIN TROUGH 06/29 AT 0200 0200 ONCE XX ; Start 06/29/19 at 02:00; Stop 06/29/19 at 02:01 Ferric Sodium Gluconate Complex 125 mg/Sodium Chloride 110 ml @ 110 mls/hr DAILY@1300 IVPB Last administered on 8/7/19at 13:00; Admin Dose 110 MLS/HR; Start 06/27/19 at 13:00; Stop 07/01/19 at 13:59 Furosemide (Lasix) 40 mg BID DIURETICS IV Last administered on 06/28/19at 05:23; Admin Dose 40 MG; Start 06/27/19 at 18:00 Assessment/Plan Hospital Course (Demo Recall) Assessment 1. Bilateral pneumonia and congestive cardiac failure with severe hypoxic respiratory failure 2. Possible aspiration component 3. Multiple myeloma Plan 1. Continue supplemental O2 2. Continue antibiotics and diuretics 3. aspiration precautions Consider palliative care evaluation is overall prognosis guarded [place] evaluation. MATIAS HOPE MD, [facility] Jun 28, 2019 15:17
[2019-06-28 15:46] VITALS: BP 133/66; PULSE 69; RESP 22
[2019-06-28] MEDS: COLLAGENASE 5 GM (UD JAR) TOP SCH (17:33)
[2019-06-28 20:00] VITALS: BP 118/61; PULSE 61; RESP 18
[2019-06-29] VITALS (7 sets, daily range): BP systolic 119–155; BP diastolic 58–74; PULSE 58–102; RESP 18–20
[2019-06-29] MEDS: CEFEPIME 1GM/50 ML (PMX) 50 ML IVPB SCH ×2 (01:31→15:55)
[2019-06-29] MEDS ORDERED: VANCOMYCIN 750 MG (PMX) 250 ML IVPB SCH (03:00)
[2019-06-29] MEDS: PANTOPRAZOLE 40 MG INJ IV SCH (05:37)
[2019-06-29] MEDS: FUROSEMIDE 40 MG INJ IV SCH ×2 (05:37→18:18)
[2019-06-29] MEDS: LEVOTHYROXINE 100 MCG TAB PO SCH (05:38)
[2019-06-29] MEDS ORDERED: POTASSIUM CHLORIDE 20 MEQ POWDER FOR ORAL SOLN PO ONE (08:00)
[2019-06-29] MEDS ORDERED: POTASSIUM PHOSPHATE 40 MEQ in SOD CHLORIDE 0.9% 250 ML IVPB ONE (09:00)
[2019-06-29] MEDS: AMLODIPINE 5 MG TAB PO SCH ×2 (09:30→20:44)
[2019-06-29] MEDS: ASPIRIN (EC) 81 MG TAB PO SCH (09:30)
[2019-06-29] MEDS: DOCUSATE SODIUM 250 MG CAP PO SCH ×2 (09:30→20:44)
[2019-06-29] MEDS: ASCORBIC ACID 500 MG TAB PO SCH ×2 (09:30→20:44)
[2019-06-29] MEDS: LOSARTAN 50 MG TAB PO SCH (09:30)
[2019-06-29] MEDS: GABAPENTIN 100 MG CAP PO SCH ×3 (09:30→20:43)
[2019-06-29] MEDS: COLLAGENASE 5 GM (UD JAR) TOP SCH (09:31)
--- NOTE | 2019-06-29 10:20 | PN ---
Date/Time of Note Date/Time of Note DATE: 06/29/19 TIME: 10:12 Assessment/Plan VTE Prophylaxis Risk score (from Ns)>0 risk: 4 SCD applied (from Nsg): Yes Pharmacological prophylaxis: NA/contraindicated Pharm contraindication: anticoag not tolerated Lines/Catheters IV Catheter Type (from Nrsg): Peripheral IV Urinary Cath still in place: No Assessment/Plan Assessment/Plan 1. Acute hypoxic respiratory failure secondary to Healthcare associated pneumonia and pleural effusions - patient appears more comfortable this am but still on 25L 80% - Repeat CXR noted with improved aeration. Will touch base with Pulm regarding need for thoracentesis - Pulmonology consultation appreciated and will continue current care. Appears more comfortable after increase in Lasix dose yesterday - continue IV antibiotics and Nebs 2. Hypertension - stable - continue to monitor and adjust as needed 3. Bacteremia - blood cultures growing diphtheroids. ID consulted for antibiotic recommendations - will repeat blood cultures 4. Bilateral pneumonia - persists on CXR - IV antibiotics and neb tx - wean O2 as tolerated 5. Bilateral effusions/ pulmonary congestion - most likely secondary to MV stenosis. Will most likely need replacement and will discuss with son since has had AVR in past - Repeat CXR noted and will touch base with Pulm on opinion for thoracentesis 6. Iron deficiency anemia - hgb improving after IV iron and PRBC given - patient on medication for multiple myeloma which may be contributing to anemia 7. History of heart failure - Elevated BNP noted - ECHO noted with severe mitral stenosis - monitoring daily weights, I/O - continue on Lasix at increased dose 7. h/o Multiple myeloma - per son, she started on therapy 6 months ago and currently on round of Palmaris. Will hold at this time given bilateral pneumonia - follows with Dr. Rick as outpatient - Pain management. Patient has fentanyl patch 8. Thrombocytopenia- stable - monitor 9. History of AVR - continue on aspirin. seen on ECHO 10. Electrolyte derangement - replacing 11. Disposition - ID consulted given new findings of bacteremia - Will touch base with pulm on thoughts for thoracentesis - Elam evaluation pending Result Diagram: 06/29/19 0502 06/29/19 0502 Results 24hrs Laboratory Tests Test 06/28/19 14:07 06/29/19 01:53 06/29/19 05:02 06/29/19 07:00 Potassium Level 3.4 L 2.9 *L Vancomycin Level 6.2 L Trough White Blood 9.1 Count Red Blood Count 3.70 L Hemoglobin 11.3 L Hematocrit 35.8 L Mean Corpuscular 96.8 Volume Mean Corpuscular 30.5 Hemoglobin Mean Corpuscular 31.6 L Hemoglobin Altagracia nt Red Cell 18.4 H Distribution Width Platelet Count 94 L Mean Platelet 10.1 Volume Immature 1.800 H Granulocytes % Neutrophils % 72.4 Lymphocytes % 14.3 L Monocytes % 8.9 Eosinophils % 1.9 Basophils % 0.7 Nucleated Red 0.0 Blood Cells % Immature 0.160 H Granulocytes # Neutrophils # 6.6 Lymphocytes # 1.3 Monocytes # 0.8 Eosinophils # 0.2 Basophils # 0.1 Nucleated Red 0.0 Blood Cells # Sodium Level 139 Chloride Level 99 Carbon Dioxide 39 H Level Anion Gap 1 L Blood Urea 18 Nitrogen Creatinine 0.55 Glucose Level 126 Calcium Level 8.7 Phosphorus Level 2.0 L Magnesium Level 1.9 Albumin 2.6 L Blood Gas Blood arterial Specimen Source Arterial Blood 06/29/2019 7:20:06 Date Drawn AM Arterial Blood 7.481 H pH (Temp corrected) Arterial Blood 50.3 H pCO2 (Temp correct) Arterial Blood 62.6 L pO2 (Temp corrected) Arterial Blood 36.7 H HCO3 Arterial Blood 11.4 H Base Excess Arterial Blood 92.0 L Oxygen Saturatio n Cuate Test ACCEPTAB Arterial Blood Right Radial Gas Puncture Site Arterial 1.1 Blood Carboxyhem oglobin Arterial Blood 0.3 Methemoglobin Blood Gas A-a O2 455.0 H Differential Oxyhemoglobin 90.7 L Percent Blood Gas 37.0 Temperature Blood Gas HFNC Modality FiO2 80.0 Blood Gas Notified Whom Blood Gas 06/29/2019 7:40:11 Notified Time AM Test 06/29/19 07:00 Lab Scanned BLOOD TRANSFUSIO Report N Subjective 24 Hr Interval Summary Free Text/Dictation Patient states shes feeling okay. still with productive cough and having difficulty clearing sputum. Appears more comfortable this am. Exam/Review of Systems Exam Vitals Vital Signs Date Temp Pulse Resp B/P (MAP) Pulse Ox O2 O2 Flow FiO2 Time Delivery Rate 06/29/19 91 80 08:54 06/29/19 97.6 58 18 151/67 07:32 (95) 8/7/19 High Flow 15:46 06/28/19 10.0 10:00 Intake and Output 06/28/19 06/28/19 06/29/19 1515:00 23:00 07:00 IntakeIntake Total 200 ml 120 ml 400 ml BalanceBalance 200 ml 120 ml 400 ml Exam General: Patient in no acute distress. remains on high flow Neck: Supple Respiratory: Coarse breath sounds bilaterally. no wheezing Cardiovascular: S1, S2, regular rate and rhythm, no obvious murmurs Gastrointestinal:soft, nontender palpation, nondistended, bowel sounds heard. no rebound or guarding Ext: Moves all extremities spontaneously. no edema appreciated Skin: No new skin lesions Results Results 24hrs Laboratory Tests Test 06/28/19 14:07 06/29/19 01:53 06/29/19 05:02 06/29/19 07:00 Potassium Level 3.4 L 2.9 *L Vancomycin Level 6.2 L Trough White Blood 9.1 Count Red Blood Count 3.70 L Hemoglobin 11.3 L Hematocrit 35.8 L Mean Corpuscular 96.8 Volume Mean Corpuscular 30.5 Hemoglobin Mean Corpuscular 31.6 L Hemoglobin Altagracia nt Red Cell 18.4 H Distribution Width Platelet Count 94 L Mean Platelet 10.1 Volume Immature 1.800 H Granulocytes % Neutrophils % 72.4 Lymphocytes % 14.3 L Monocytes % 8.9 Eosinophils % 1.9 Basophils % 0.7 Nucleated Red 0.0 Blood Cells % Immature 0.160 H Granulocytes # Neutrophils # 6.6 Lymphocytes # 1.3 Monocytes # 0.8 Eosinophils # 0.2 Basophils # 0.1 Nucleated Red 0.0 Blood Cells # Sodium Level 139 Chloride Level 99 Carbon Dioxide 39 H Level Anion Gap 1 L Blood Urea 18 Nitrogen Creatinine 0.55 Glucose Level 126 Calcium Level 8.7 Phosphorus Level 2.0 L Magnesium Level 1.9 Albumin 2.6 L Blood Gas Blood arterial Specimen Source Arterial Blood 06/29/2019 7:20:06 Date Drawn AM Arterial Blood 7.481 H pH (Temp corrected) Arterial Blood 50.3 H pCO2 (Temp correct) Arterial Blood 62.6 L pO2 (Temp corrected) Arterial Blood 36.7 H HCO3 Arterial Blood 11.4 H Base Excess Arterial Blood 92.0 L Oxygen Saturatio n Cuate Test ACCEPTAB Arterial Blood Right Radial Gas Puncture Site Arterial 1.1 Blood Carboxyhem oglobin Arterial Blood 0.3 Methemoglobin Blood Gas A-a O2 455.0 H Differential Oxyhemoglobin 90.7 L Percent Blood Gas 37.0 Temperature Blood Gas HFNC Modality FiO2 80.0 Blood Gas CW Notified Whom Blood Gas 06/29/2019 7:40:11 Notified Time AM Test 06/29/19 07:00 Lab Scanned BLOOD TRANSFUSIO Report N Medications Medication Current Medications IV Flush (NS 3 ml) 3 ml PER PROTOCOL IV ; Start 06/26/19 at 10:00 Ondansetron HCl (Zofran Inj) 4 mg Q6H PRN IV NAUSEA/VOMITING; Start 06/26/19 at 10:00 Acetaminophen (Tylenol Tab) 650 mg Q6H PRN PO .PAIN 1-3 OR TEMP Last administered on 06/26/19 16:47; Admin Dose 650 MG; Start 06/26/19 at 10:00 Pantoprazole (Protonix Iv) 40 mg DAILY@06 IV Last administered on 06/29/19 05:37; Admin Dose 40 MG; Start 06/26/19 at 11:00 Albuterol/ Ipratropium (Duoneb) 3 ml Q2H RESP THERAPY PRN HHN SHORTNESS OF BREATH Last administered on 06/27/19 05:24; Admin Dose 3 ML; Start 06/26/19 at 10:00 Vancomycin HCl (Vanco Iv Per Pharmacy) VANCOMYCIN PER PHARMACY PER PROTOCOL XX ; Start 06/27/19 at 03:00 Cefepime HCl 50 ml @ 100 mls/hr Q12H IVPB Last administered on 06/29/19 01:31; Admin Dose 100 MLS/HR; Start 06/26/19 at 14:00 Aspirin (Halfprin) 81 mg DAILY PO Last administered on 06/29/19 09:30; Admin Dose 81 MG; Start 06/27/19 at 09:00 Eye Lubricant (Akwa Oint) 1 applic TID PRN BOTH EYES DRY EYES; Start 06/26/19 at 17:30 Ascorbic Acid (Vitamin C) 500 mg DAILY PO Last administered on 06/29/19 09:30; Admin Dose 500 MG; Start 06/27/19 at 09:00 Docusate Sodium (Colace) 250 mg BID PO Last administered on 06/29/19 09:30; Admin Dose 250 MG; Start 06/26/19 at 21:00 Gabapentin (Neurontin) 100 mg TID PO Last administered on 06/29/19 09:30; Admin Dose 100 MG; Start 06/26/19 at 21:00 Levothyroxine Sodium (Synthroid) 100 mcg AC BREAKFAST PO Last administered on 06/29/19 05:38; Admin Dose 100 MCG; Start 06/27/19 at 07:00 Tramadol HCl (Ultram) 50 mg Q6H PRN PO PAIN Last administered on 06/27/19 04:12; Admin Dose 50 MG; Start 06/26/19 at 17:30 Fentanyl (Duragesic 12 Mcg/Hr Patch) 1 patch Q72H TRANSDERM Last administered on 06/27/19 10:07; Admin Dose 1 PATCH; Start 06/27/19 at 10:00 Hydralazine HCl (Apresoline) 10 mg Q6H PRN IV HTN Last administered on 06/27/19 08:42; Admin Dose 10 MG; Start 06/27/19 at 04:00 Amlodipine Besylate (Norvasc) 5 mg BID PO Last administered on 06/29/19 09:30; Admin Dose 5 MG; Start 06/27/19 at 09:00 Carvedilol (Coreg) 25 mg BID WITH MEALS PO Last administered on 06/29/19 09:29; Admin Dose 25 MG; Start 06/27/19 at 09:00 Losartan Potassium (Cozaar) 100 mg DAILY PO Last administered on 06/29/19 09:30; Admin Dose 100 MG; Start 06/27/19 at 09:00 Ferric Sodium Gluconate Complex 125 mg/Sodium Chloride 110 ml @ 110 mls/hr DAILY@1300 IVPB Last administered on 06/28/19 13:00; Admin Dose 110 MLS/HR; Start 06/27/19 at 13:00; Stop 07/01/19 at 13:59 Furosemide (Lasix) 40 mg BID DIURETICS IV Last administered on 06/29/19 05:37; Admin Dose 40 MG; Start 06/27/19 at 18:00 Collagenase (Santyl) 1 applic DAILY TOP Last administered on 06/29/19 09:31; Admin Dose 1 APPLIC; Start 06/28/19 at 16:00 Vancomycin/Sodium Chloride 250 ml @ 125 mls/hr Q12H IVPB ; Start 06/29/19 at 15:00 Miscellaneous Information (*Rx Drug Level Order Reminder*) VANCOMYCIN TROUGH LEVEL 1400 ONCE XX ; Start 06/30/19 at 14:00; Stop 06/30/19 at 14:01 Potassium Phosphate 40 meq/ Sodium Chloride 259.0909 ml @ 64.773 m... ONCE ON CE IVPB Last administered on 06/29/19at 09:30; Admin Dose 64.773 MLS/HR; Start 06/29/19 at 09:00; Stop 06/29/19 at 12:59 DEVEN PORRAS MD Jun 29, 2019 10:20
--- NOTE | 2019-06-29 11:59 | CONS ---
Consult Date/Type/Reason Admit Date/Time Jun 26, 2019 at 19:19 Initial Consult Date 06/26/19 Type of Consult Pulmonary Date/Time of Note DATE: 06/29/19 TIME: 11:58 Subjective Patient comfortable this morning chest x-ray shows moderate right effusion. Objective Vital Signs Date Temp Pulse Resp B/P (MAP) Pulse Ox O2 O2 Flow FiO2 Time Delivery Rate 06/29/19 98.0 58 19 119/58 95 11:28 (78) 06/29/19 80 08:54 06/29/19 Vapotherm 08:00 06/28/19 10.0 10:00 Intake and Output 06/28/19 06/28/19 06/29/19 1515:00 23:00 07:00 IntakeIntake Total 200 ml 120 ml 400 ml BalanceBalance 200 ml 120 ml 400 ml Exam GENERAL: Elderly appearing lady on high flow O2 VITAL SIGNS: per chart NECK: Supple. No JVD or lymphadenopathy. CARDIAC EXAM: S1, S2. No added sounds or murmurs. CHEST: Diminished air entry bilaterally ABDOMEN: Soft, nontender. No guarding or rebound. EXTREMITIES: No cyanosis, clubbing or edema. NEUROLOGIC: Generalized weakness. No focal deficits. Vent Setting Fraction of Inspired Oxygen pe: 80 Results/Medications Result Diagram: 06/29/19 0502 06/29/19 0502 Results 24 hrs Laboratory Tests Test 06/28/19 14:07 06/29/19 01:53 06/29/19 05:02 06/29/19 07:00 Potassium Level 3.4 L 2.9 *L Vancomycin Level 6.2 L Trough White Blood 9.1 Count Red Blood Count 3.70 L Hemoglobin 11.3 L Hematocrit 35.8 L Mean Corpuscular 96.8 Volume Mean Corpuscular 30.5 Hemoglobin Mean Corpuscular 31.6 L Hemoglobin Altagracia nt Red Cell 18.4 H Distribution Width Platelet Count 94 L Mean Platelet 10.1 Volume Immature 1.800 H Granulocytes % Neutrophils % 72.4 Lymphocytes % 14.3 L Monocytes % 8.9 Eosinophils % 1.9 Basophils % 0.7 Nucleated Red 0.0 Blood Cells % Immature 0.160 H Granulocytes # Neutrophils # 6.6 Lymphocytes # 1.3 Monocytes # 0.8 Eosinophils # 0.2 Basophils # 0.1 Nucleated Red 0.0 Blood Cells # Sodium Level 139 Chloride Level 99 Carbon Dioxide 39 H Level Anion Gap 1 L Blood Urea 18 Nitrogen Creatinine 0.55 Glucose Level 126 Calcium Level 8.7 Phosphorus Level 2.0 L Magnesium Level 1.9 Albumin 2.6 L Blood Gas Blood arterial Specimen Source Arterial Blood 06/29/2019 7:20:06 Date Drawn AM Arterial Blood 7.481 H pH (Temp corrected) Arterial Blood 50.3 H pCO2 (Temp correct) Arterial Blood 62.6 L pO2 (Temp corrected) Arterial Blood 36.7 H HCO3 Arterial Blood 11.4 H Base Excess Arterial Blood 92.0 L Oxygen Saturatio n Cuate Test ACCEPTAB Arterial Blood Right Radial Gas Puncture Site Arterial 1.1 Blood Carboxyhem oglobin Arterial Blood 0.3 Methemoglobin Blood Gas A-a O2 455.0 H Differential Oxyhemoglobin 90.7 L Percent Blood Gas 37.0 Temperature Blood Gas HFNC Modality FiO2 80.0 Blood Gas CW Notified Whom Blood Gas 06/29/2019 7:40:11 Notified Time AM Test 06/29/19 07:00 Lab Scanned BLOOD TRANSFUSIO Report N Medications Current Medications IV Flush (NS 3 ml) 3 ml PER PROTOCOL IV ; Start 06/26/19 at 10:00 Ondansetron HCl (Zofran Inj) 4 mg Q6H PRN IV NAUSEA/VOMITING; Start 06/26/19 at 10:00 Acetaminophen (Tylenol Tab) 650 mg Q6H PRN PO .PAIN 1-3 OR TEMP Last administered on 06/26/19at 16:47; Admin Dose 650 MG; Start 06/26/19 at 10:00 Pantoprazole (Protonix Iv) 40 mg DAILY@06 IV Last administered on 06/29/19at 05: 37; Admin Dose 40 MG; Start 06/26/19 at 11:00 Albuterol/ Ipratropium (Duoneb) 3 ml Q2H RESP THERAPY PRN HHN SHORTNESS OF BREATH Last administered on 06/27/19at 05:24; Admin Dose 3 ML; Start 06/26/19 at 1 0:00 Vancomycin HCl (Vanco Iv Per Pharmacy) VANCOMYCIN PER PHARMACY PER PROTOCOL XX ; Start 06/27/19 at 03:00 Cefepime HCl 50 ml @ 100 mls/hr Q12H IVPB Last administered on 06/29/19at 01:31; Admin Dose 100 MLS/HR; Start 06/26/19 at 14:00 Aspirin (Halfprin) 81 mg DAILY PO Last administered on 06/29/19 09:30; Admin Dose 81 MG; Start 06/27/19 at 09:00 Eye Lubricant (Akwa Oint) 1 applic TID PRN BOTH EYES DRY EYES; Start 06/26/19 at 17:30 Ascorbic Acid (Vitamin C) 500 mg DAILY PO Last administered on 06/29/19 09:30; Admin Dose 500 MG; Start 06/27/19 at 09:00 Docusate Sodium (Colace) 250 mg BID PO Last administered on 06/29/19 09:30; Admin Dose 250 MG; Start 06/26/19 at 21:00 Gabapentin (Neurontin) 100 mg TID PO Last administered on 06/29/19 09:30; Admin Dose 100 MG; Start 06/26/19 at 21:00 Levothyroxine Sodium (Synthroid) 100 mcg AC BREAKFAST PO Last administered on 06/29/19 05:38; Admin Dose 100 MCG; Start 06/27/19 at 07:00 Tramadol HCl (Ultram) 50 mg Q6H PRN PO PAIN Last administered on 06/27/19 04:12; Admin Dose 50 MG; Start 06/26/19 at 17:30 Fentanyl (Duragesic 12 Mcg/Hr Patch) 1 patch Q72H TRANSDERM Last administered on 06/27/19 10:07; Admin Dose 1 PATCH; Start 06/27/19 at 10:00 Hydralazine HCl (Apresoline) 10 mg Q6H PRN IV HTN Last administered on 06/27/19 08:42; Admin Dose 10 MG; Start 06/27/19 at 04:00 Amlodipine Besylate (Norvasc) 5 mg BID PO Last administered on 06/29/19 09:30; Admin Dose 5 MG; Start 06/27/19 at 09:00 Carvedilol (Coreg) 25 mg BID WITH MEALS PO Last administered on 06/29/19 09:29; Admin Dose 25 MG; Start 06/27/19 at 09:00 Losartan Potassium (Cozaar) 100 mg DAILY PO Last administered on 06/29/19 09:30; Admin Dose 100 MG; Start 06/27/19 at 09:00 Ferric Sodium Gluconate Complex 125 mg/Sodium Chloride 110 ml @ 110 mls/hr DAILY@1300 IVPB Last administered on 06/28/19at 13:00; Admin Dose 110 MLS/HR; Start 06/27/19 at 13:00; Stop 07/01/19 at 13:59 Furosemide (Lasix) 40 mg BID DIURETICS IV Last administered on 06/29/19at 05:37; Admin Dose 40 MG; Start 06/27/19 at 18:00 Collagenase (Santyl) 1 applic DAILY TOP Last administered on 06/29/19at 09:31; Admin Dose 1 APPLIC; Start 06/28/19 at 16:00 Vancomycin/Sodium Chloride 250 ml @ 125 mls/hr Q12H IVPB ; Start 06/29/19 at 15:00 Miscellaneous Information (*Rx Drug Level Order Reminder*) VANCOMYCIN TROUGH LEV EL 1400 ONCE XX ; Start 06/30/19 at 14:00; Stop 06/30/19 at 14:01 Potassium Phosphate 40 meq/ Sodium Chloride 259.0909 ml @ 64.773 m... ONCE ONCE IVPB Last administered on 06/29/19at 09:30; Admin Dose 64.773 MLS/HR; Start 06/29/19 at 09:00; Stop 06/29/19 at 12:59 Assessment/Plan Hospital Course (Demo Recall) Assessment 1. Bilateral pneumonia and congestive cardiac failure with severe hypoxic respiratory failure 2. Possible aspiration component 3. Multiple myeloma Plan 1. Continue supplemental O2 2. Continue antibiotics and diuretics 3. aspiration precautions Thoracentesis right effusion with pleural fluid studies Consider palliative care evaluation is overall prognosis guarded Elam evaluation. MATIAS HOPE MD, [facility] Jun 29, 2019 11:59
[2019-06-29] MEDS: SOD FERRIC GLUC COMPLX 125 MG in SOD CHLORIDE 0.9% 100 ML IVPB SCH (13:57)
--- NOTE | 2019-06-29 14:38 | CONS ---
DATE OF ADMISSION: 06/26/2019 DATE OF CONSULTATION: 06/29/2019 TYPE OF CONSULTATION: Infectious disease. REASON FOR CONSULTATION: Antibiotic management. HISTORY OF PRESENT ILLNESS: Vera Sharif is an 88-year-old female, who was brought in [facility] of shortness of breath and fever. The patient lives in a SNF. She had fever with cough and carol rtness of breath as well as a low oxygen saturation in the mid 80s. She is not in acute respiratory distress. She had a cough and difficulty breathing on the night of admission. PAST PROBLEMS: Include history of hypertension, coronary artery disease with congestive heart failur e, aortic valve replacement, asthma, anemia and cancer. FAMILY HISTORY: Noncontributory. SOCIAL HISTORY: She does not smoke, drink or abuse drugs. ALLERGIES: NONE TO PENICILLIN, SULFA OR FOODS. MEDICATIONS: Per chart. REVIEW OF SYSTEMS: Noncontributory. PHYSICAL EXAMINATION: GENERAL: The patient is a well-developed, well-nourished female elderly, in no acute distress. VITAL SIGNS: Stable. She is afebrile. SKIN: Without generalized rash. HEENT: Within normal limits. NECK: Supple. LYMPH NODES: None palpable. CHEST: Decreased breath sounds at the bases with bilateral diffuse coarse rhonchi and rales. HEART: Without murmur or gallop. ABDOMEN: Soft, nontender, without organosplenomegaly or masses. EXTREMITIES: Without cyanosis, clubbing, or edema. RECTAL AND GENITAL: Deferred. NEUROLOGIC: No focal neurological abnormalities. ANCILLARY LABORATORY DATA: On June 26, her white count was 4.9 with 30% neutrophils, 26% bands, H and H of 7.7 and 24, platelet count 90,000. BUN and creatinine 28/0.89. Random glucose 123. She w as placed on vancomycin and cefepime. Her chest x-ray showed bilateral lung base atelectasis versus airspace disease with bilateral small p leural effusions; airspace disease, right greater than left. Differential considerations include tamela ateral lung base pneumonia. Current diagnosis was pneumonia with hypoxemia. HOSPITAL COURSE: The patient was seen by Dr. Mendez, admitted with bilateral pneumonia, right lower l obe predominance, history of AVR, history of multiple myeloma, anemia and thrombocytopenia. She was fluid resuscitated in the emergency room with improvement in her hemodynamics. Her blood cultures ar e growing diphtheroids 2/2 drawn 15 minutes apart. A 2D echo was done, normal left ventricular systo lic function, ejection fraction of 65%, dilated IVC with respiratory collapse consistent with elevate d right atrial pressure. She was seen by Dr. Mclaughlin on the . Her FIO2 decreased to 80%. White count is 10,000. She is currently on vancomycin. She has healthcare-associated pneumonia and pleura l effusions, history of multiple myeloma, history of AVR. The concern is the fact that the potassium was 2.9 yesterday. Concern is the fact that she has diphtheroids growing from her blood on June 26. This may be contaminant; however, with the history of aortic valve replacement, we have to be co ncerned about endocarditis as well as a source being her lungs. We will repeat her blood cultures if they were not already repeated. Blood cultures were done today June 29 and will see what that gr ows. If necessary, we may need to do a HERMANN, although she may not be a candidate for further surgery. I will dictate my findings to the hospitalist and the aforementioned consultants. Dictated By: PRAVEEN SAMANIEGO MD, JD/NTS Conf#: [id number] DID#: [id number] CC: EVETTE CRATER MD; FRANSISCO SCHILLING;*[facility]*
[2019-06-29] MEDS: VANCOMYCIN 750 MG (PMX) 250 ML IVPB SCH (16:50)
[2019-06-30] MEDS: CEFEPIME 1GM/50 ML (PMX) 50 ML IVPB SCH ×2 (01:26→18:36)
[2019-06-30] MEDS: ACETAMINOPHEN 325 MG TAB PO PRN (02:01)
[2019-06-30] MEDS: VANCOMYCIN 750 MG (PMX) 250 ML IVPB SCH ×2 (02:45→21:02)
[2019-06-30 04:00] VITALS: BP 152/74; PULSE 65; RESP 22
[2019-06-30] MEDS: FUROSEMIDE 40 MG INJ IV SCH ×2 (05:46→18:39)
[2019-06-30] MEDS: LEVOTHYROXINE 100 MCG TAB PO SCH (05:47)
[2019-06-30] MEDS: PANTOPRAZOLE 40 MG INJ IV SCH (05:47)
[2019-06-30 07:23] VITALS: BP 147/69; PULSE 59; RESP 18
[2019-06-30] MEDS ORDERED: MAGNESIUM SULFATE 2 GM/50 ML 50 ML IVPB ONE (09:00)
[2019-06-30] MEDS: LOSARTAN 50 MG TAB PO SCH (09:27)
[2019-06-30] MEDS: DOCUSATE SODIUM 250 MG CAP PO SCH ×2 (09:27→21:02)
[2019-06-30] MEDS: GABAPENTIN 100 MG CAP PO SCH ×3 (09:28→21:03)
[2019-06-30] MEDS: ASPIRIN (EC) 81 MG TAB PO SCH (09:28)
[2019-06-30] MEDS: MULTIVITAMINS THERAPEUTIC TAB PO SCH (09:29)
[2019-06-30] MEDS: COLLAGENASE 5 GM (UD JAR) TOP SCH (09:29)
[2019-06-30] MEDS: AMLODIPINE 5 MG TAB PO SCH ×2 (09:29→21:03)
[2019-06-30] MEDS: ASCORBIC ACID 500 MG TAB PO SCH ×2 (09:29→21:04)
[2019-06-30] MEDS: ZINC SULFATE 220 MG CAP PO SCH (09:29)
[2019-06-30] MEDS: BALSAM PERU/CASTOR OIL 60 GM TUBE TOP SCH (09:30)
--- NOTE | 2019-06-30 10:02 | PN ---
Date/Time of Note Date/Time of Note DATE: 06/30/19 TIME: 09:55 Assessment/Plan VTE Prophylaxis Risk score (from Ns)>0 risk: 10 SCD applied (from Ns): Yes Pharmacological prophylaxis: LMWH Lines/Catheters IV Catheter Type (from Nrs): Peripheral IV Urinary Cath still in place: No Assessment/Plan Assessment/Plan 1. Acute hypoxic respiratory failure secondary to Healthcare associated p neumonia and pleural effusions - Patient improving and now on 60% FIO2. - Pulmonology consultation appreciated and will continue current care. Thoracentesis ordered but need K corrected prior to procedure - continue IV antibiotics and Nebs 2. Hypertension - stable - continue to monitor and adjust as needed 3. Bacteremia - blood cultures growing corynebacterium. - ID on board and appreciate recommendations - repeat blood cultures drawn 4. Bilateral pneumonia - IV antibiotics and neb tx - wean O2 as tolerated 5. Bilateral effusions/ pulmonary congestion - most likely secondary to MV stenosis. Will most likely need replacement and will discuss with son since has had AVR in past - Thoracentesis ordered pending K replacement 6. Iron deficiency anemia - hgb improving after IV iron and PRBC given - patient on medication for multiple myeloma which may be contributing to anemia 7. Acute on chronic systolic heart failure - Elevated BNP noted - ECHO noted with severe mitral stenosis, EF 65% - monitoring daily weights, I/O - continue on Lasix at increased dose 8. h/o Multiple myeloma - per son, she started on therapy 6 months ago and currently on round of Palmaris. Will hold at this time given bilateral pneumonia - follows with Dr. Rick as outpatient - Pain management. Patient has fentanyl patch 9. Thrombocytopenia- stable - monitor 10. History of AVR - continue on aspirin. seen on ECHO 11. Hypokalemia - replacing 12. Disposition - Replacing K and repeat at 1300. Once normal, will be able to undergo thoracentesis - [facility] evaluation pending - continue current treatment and monitor repeat blood cultures Result Diagram: 06/30/19 0505 06/30/19 0505 Results 24hrs Laboratory Tests Test 06/30/19 01:56 06/30/19 05:05 Vancomycin Level Trough 14.1 White Blood Count 9.0 Red Blood Count 3.51 L Hemoglobin 10.8 L Hematocrit 35.0 L Mean Corpuscular Volume 99.7 Mean Corpuscular Hemoglobin 30.8 Mean Corpuscular Hemoglobin Concent 30.9 L Red Cell Distribution Width 18.0 H Platelet Count 87 L Mean Platelet Volume 9.6 Immature Granulocytes % 2.900 H Neutrophils % 68.1 Lymphocytes % 17.6 Monocytes % 9.1 Eosinophils % 2.0 Basophils % 0.3 Nucleated Red Blood Cells % 0.0 Immature Granulocytes # 0.260 H Neutrophils # 6.2 Lymphocytes # 1.6 Monocytes # 0.8 Eosinophils # 0.2 Basophils # 0.0 Nucleated Red Blood Cells # 0.0 Sodium Level 140 Potassium Level 3.2 L Chloride Level 100 Carbon Dioxide Level 40 H Anion Gap 0 L Blood Urea Nitrogen 18 Creatinine 0.56 Glucose Level 130 Calcium Level 8.7 Phosphorus Level 3.1 Magnesium Level 1.7 Albumin 2.7 L Subjective 24 Hr Interval Summary Free Text/Dictation Patient doing better and denies any acute issues. Asking to be changed. No acute overnight events. Exam/Review of Systems Exam Vitals Vital Signs Date Temp Pulse Resp B/P (MAP) Pulse Ox O2 O2 Flow FiO2 Time Delivery Rate 06/30/19 95 60 09:10 06/30/19 98.3 59 18 147/69 07:23 (95) 06/30/19 High Flow 04:00 06/28/19 10.0 10:00 Intake and Output 06/29/19 06/29/19 06/30/19 1515:00 23:00 07:00 IntakeIntake Total 710 ml 650 ml OutputOutput Total 4 ml BalanceBalance 706 ml 650 ml Exam General: Patient in no acute distress. on high flow Neck: Supple Respiratory: Coarse breath sounds bilaterally. no wheezing Cardiovascular: S1, S2, regular rate and rhythm, no obvious murmurs Gastrointestinal:soft, nontender palpation, nondistended, bowel sounds heard. no rebound or guarding Ext: Moves all extremities spontaneously. no edema appreciated Skin: No new skin lesions Results Results 24hrs Laboratory Tests Test 06/30/19 01:56 06/30/19 05:05 Vancomycin Level Trough 14.1 White Blood Count 9.0 Red Blood Count 3.51 L Hemoglobin 10.8 L Hematocrit 35.0 L Mean Corpuscular Volume 99.7 Mean Corpuscular Hemoglobin 30.8 Mean Corpuscular Hemoglobin Concent 30.9 L Red Cell Distribution Width 18.0 H Platelet Count 87 L Mean Platelet Volume 9.6 Immature Granulocytes % 2.900 H Neutrophils % 68.1 Lymphocytes % 17.6 Monocytes % 9.1 Eosinophils % 2.0 Basophils % 0.3 Nucleated Red Blood Cells % 0.0 Immature Granulocytes # 0.260 H Neutrophils # 6.2 Lymphocytes # 1.6 Monocytes # 0.8 Eosinophils # 0.2 Basophils # 0.0 Nucleated Red Blood Cells # 0.0 Sodium Level 140 Potassium Level 3.2 L Chloride Level 100 Carbon Dioxide Level 40 H Anion Gap 0 L Blood Urea Nitrogen 18 Creatinine 0.56 Glucose Level 130 Calcium Level 8.7 Phosphorus Level 3.1 Magnesium Level 1.7 Albumin 2.7 L Medications Medication Current Medications IV Flush (NS 3 ml) 3 ml PER PROTOCOL IV ; Start 06/26/19 at 10:00 Ondansetron HCl (Zofran Inj) 4 mg Q6H PRN IV NAUSEA/VOMITING; Start 06/26/19 at 10:00 Acetaminophen (Tylenol Tab) 650 mg Q6H PRN PO .PAIN 1-3 OR TEMP Last administered on 06/30/19at 02:01; Admin Dose 650 MG; Start 06/26/19 at 10:00 Pantoprazole (Protonix Iv) 40 mg DAILY@06 IV Last administered on 06/30/19 05:47; Admin Dose 40 MG; Start 06/26/19 at 11:00 Albuterol/ Ipratropium (Duoneb) 3 ml Q2H RESP THERAPY PRN HHN SHORTNESS OF BREATH Last administered on 06/27/19 05:24; Admin Dose 3 ML; Start 06/26/19 at 10:00 Vancomycin HCl (Vanco Iv Per Pharmacy) VANCOMYCIN PER PHARMACY PER PROTOCOL XX ; Start 06/27/19 at 03:00 Cefepime HCl 50 ml @ 100 mls/hr Q12H IVPB Last administered on 06/30/19 01:26; Admin Dose 100 MLS/HR; Start 06/26/19 at 14:00 Aspirin (Halfprin) 81 mg DAILY PO Last administered on 06/29/19 09:30; Admin Dose 81 MG; Start 06/27/19 at 09:00 Eye Lubricant (Akwa Oint) 1 applic TID PRN BOTH EYES DRY EYES; Start 06/26/19 at 17:30 Docusate Sodium (Colace) 250 mg BID PO Last administered on 06/29/19at 20:44; Admin Dose 250 MG; Start 06/26/19 at 21:00 Gabapentin (Neurontin) 100 mg TID PO Last administered on 06/29/19 20:43; Admin Dose 100 MG; Start 06/26/19 at 21:00 Levothyroxine Sodium (Synthroid) 100 mcg AC BREAKFAST PO Last administered on 06/30/19 05:47; Admin Dose 100 MCG; Start 06/27/19 at 07:00 Tramadol HCl (Ultram) 50 mg Q6H PRN PO PAIN Last administered on 06/27/19 04:12; Admin Dose 50 MG; Start 06/26/19 at 17:30 Fentanyl (Duragesic 12 Mcg/Hr Patch) 1 patch Q72H TRANSDERM Last administered on 06/27/19 10:07; Admin Dose 1 PATCH; Start 06/27/19 at 10:00 Hydralazine HCl (Apresoline) 10 mg Q6H PRN IV HTN Last administered on 06/27/19 08:42; Admin Dose 10 MG; Start 06/27/19 at 04:00 Amlodipine Besylate (Norvasc) 5 mg BID PO Last administered on 06/29/19 20:44; Admin Dose 5 MG; Start 06/27/19 at 09:00 Carvedilol (Coreg) 25 mg BID WITH MEALS PO Last administered on 06/29/19 18:18; Admin Dose 25 MG; Start 06/27/19 at 09:00 Losartan Potassium (Cozaar) 100 mg DAILY PO Last administered on 06/29/19 09:30; Admin Dose 100 MG; Start 06/27/19 at 09:00 Ferric Sodium Gluconate Complex 125 mg/Sodium Chloride 110 ml @ 110 mls/hr DAILY@1300 IVPB Last administered on 06/29/19 13:57; Admin Dose 110 MLS/HR; Start 06/27/19 at 13:00; Stop 07/01/19 at 13:59 Furosemide (Lasix) 40 mg BID DIURETICS IV Last administered on 06/30/19 05:46; Admin Dose 40 MG; Start 06/27/19 at 18:00 Collagenase (Santyl) 1 applic DAILY TOP Last administered on 06/29/19 09:31; Admin Dose 1 APPLIC; Start 06/28/19 at 16:00 Vancomycin/Sodium Chloride 250 ml @ 125 mls/hr Q12H IVPB Last administered on 06/30/19at 02:45; Admin Dose 125 MLS/HR; Start 06/29/19 at 15:00 Miscellaneous Information (*Rx Drug Level Order Reminder*) VANCOMYCIN TROUGH LEVEL 1400 ONCE XX ; Start 06/30/19 at 14:00; Stop 06/30/19 at 14:01 Multivitamins Therapeutic (Theragran) 1 tab DAILY PO ; Start 06/30/19 at 09:00 Ascorbic Acid (Vitamin C) 500 mg BID PO Last administered on 06/29/19at 20:44; Admin Dose 500 MG; Start 06/29/19 at 21:00 Zinc Sulfate (Zinc Sulfate) 220 mg DAILY PO ; Start 06/30/19 at 09:00; Stop 07/10/19 at 08:59 Potassium Chloride (Potassium Chloride Pwd/Soln) 40 meq BID PO ; Start 06/30/19 at 09:00 Magnesium Sulfate 50 ml @ 25 mls/hr ONCE ONCE IVPB ; Start 06/30/19 at 09:00; Stop 06/30/19 at 10:59 DEVEN PORRAS MD Jun 30, 2019 10:02
[2019-06-30] MEDS: POTASSIUM CHLORIDE 20 MEQ POWDER FOR ORAL SOLN PO SCH ×2 (10:05→21:03)
[2019-06-30 11:19] VITALS: BP 157/70; PULSE 59; RESP 18
[2019-06-30] MEDS: POTASSIUM CHLORIDE 100 ML IVPB SCH ×2 (12:09→14:23)
--- NOTE | 2019-06-30 12:15 | CONS ---
Consult Date/Type/Reason Admit Date/Time Jun 26, 2019 at 19:19 Initial Consult Date 06/26/19 Type of Consult Pulmonary Date/Time of Note DATE: 06/30/19 TIME: 12:15 Subjective Patient appears comfortable today on 60% FiO2 pending thoracentesis Objective Vital Signs Date Temp Pulse Resp B/P (MAP) Pulse Ox O2 O2 Flow FiO2 Time Delivery Rate 06/30/19 98.6 59 18 157/70 91 11:19 (99) 06/30/19 60 09:10 06/30/19 Vapotherm 08:30 06/28/19 10.0 10:00 Intake and Output 06/29/19 06/29/19 06/30/19 1515:00 23:00 07:00 IntakeIntake Total 710 ml 650 ml OutputOutput Total 4 ml BalanceBalance 706 ml 650 ml Exam GENERAL: Elderly appearing lady on high flow O2 VITAL SIGNS: per chart NECK: Supple. No JVD or lymphadenopathy. CARDIAC EXAM: S1, S2. No added sounds or murmurs. CHEST: Diminished air entry bilaterally ABDOMEN: Soft, nontender. No guarding or rebound. EXTREMITIES: No cyanosis, clubbing or edema. NEUROLOGIC: Generalized weakness. No focal deficits. Vent Setting Fraction of Inspired Oxygen pe: 60 Results/Medications Result Diagram: 06/30/19 0505 06/30/19 0505 Results 24 hrs Laboratory Tests Test 06/30/19 01:56 06/30/19 05:05 Vancomycin Level Trough 14.1 White Blood Count 9.0 Red Blood Count 3.51 L Hemoglobin 10.8 L Hematocrit 35.0 L Mean Corpuscular Volume 99.7 Mean Corpuscular Hemoglobin 30.8 Mean Corpuscular Hemoglobin Concent 30.9 L Red Cell Distribution Width 18.0 H Platelet Count 87 L Mean Platelet Volume 9.6 Immature Granulocytes % 2.900 H Neutrophils % 68.1 Lymphocytes % 17.6 Monocytes % 9.1 Eosinophils % 2.0 Basophils % 0.3 Nucleated Red Blood Cells % 0.0 Immature Granulocytes # 0.260 H Neutrophils # 6.2 Lymphocytes # 1.6 Monocytes # 0.8 Eosinophils # 0.2 Basophils # 0.0 Nucleated Red Blood Cells # 0.0 Sodium Level 140 Potassium Level 3.2 L Chloride Level 100 Carbon Dioxide Level 40 H Anion Gap 0 L Blood Urea Nitrogen 18 Creatinine 0.56 Glucose Level 130 Calcium Level 8.7 Phosphorus Level 3.1 Magnesium Level 1.7 Albumin 2.7 L Medications Current Medications IV Flush (NS 3 ml) 3 ml PER PROTOCOL IV ; Start 06/26/19 at 10:00 Ondansetron HCl (Zofran Inj) 4 mg Q6H PRN IV NAUSEA/VOMITING; Start 06/26/19 at 10:00 Acetaminophen (Tylenol Tab) 650 mg Q6H PRN PO .PAIN 1-3 OR TEMP Last administered on 06/30/19 02:01; Admin Dose 650 MG; Start 06/26/19 at 10:00 Pantoprazole (Protonix Iv) 40 mg DAILY@06 IV Last administered on 06/30/19 05:47; Admin Dose 40 MG; Start 06/26/19 at 11:00 Albuterol/ Ipratropium (Duoneb) 3 ml Q2H RESP THERAPY PRN HHN SHORTNESS OF BREATH Last administered on 06/27/19 05:24; Admin Dose 3 ML; Start 06/26/19 at 10:00 Vancomycin HCl (Vanco Iv Per Pharmacy) VANCOMYCIN PER PHARMACY PER PROTOCOL XX ; Start 06/27/19 at 03:00 Cefepime HCl 50 ml @ 100 mls/hr Q12H IVPB Last administered on 06/30/19 01:26; Admin Dose 100 MLS/HR; Start 06/26/19 at 14:00 Aspirin (Halfprin) 81 mg DAILY PO Last administered on 06/30/19 09:28; Admin Dose 81 MG; Start 06/27/19 at 09:00 Eye Lubricant (Akwa Oint) 1 applic TID PRN BOTH EYES DRY EYES; Start 06/26/19 at 17:30 Docusate Sodium (Colace) 250 mg BID PO Last administered on 06/30/19 09:27; Admin Dose 250 MG; Start 06/26/19 at 21:00 Gabapentin (Neurontin) 100 mg TID PO Last administered on 06/30/19 09:28; Admin Dose 100 MG; Start 06/26/19 at 21:00 Levothyroxine Sodium (Synthroid) 100 mcg AC BREAKFAST PO Last administered on 06/30/19 05:47; Admin Dose 100 MCG; Start 06/27/19 at 07:00 Tramadol HCl (Ultram) 50 mg Q6H PRN PO PAIN Last administered on 06/27/19 04: 12; Admin Dose 50 MG; Start 06/26/19 at 17:30 Fentanyl (Duragesic 12 Mcg/Hr Patch) 1 patch Q72H TRANSDERM Last administered on 06/27/19 10:07; Admin Dose 1 PATCH; Start 06/27/19 at 10:00 Hydralazine HCl (Apresoline) 10 mg Q6H PRN IV HTN Last administered on 06/27/19 08:42; Admin Dose 10 MG; Start 06/27/19 at 04:00 Amlodipine Besylate (Norvasc) 5 mg BID PO Last administered on 06/30/19 09:29; Admin Dose 5 MG; Start 06/27/19 at 09:00 Carvedilol (Coreg) 25 mg BID WITH MEALS PO Last administered on 06/30/19 09:27; Admin Dose 25 MG; Start 06/27/19 at 09:00 Losartan Potassium (Cozaar) 100 mg DAILY PO Last administered on 06/30/19 09:27; Admin Dose 100 MG; Start 06/27/19 at 09:00 Ferric Sodium Gluconate Complex 125 mg/Sodium Chloride 110 ml @ 110 mls/hr DAILY@1300 IVPB Last administered on 06/29/19 13:57; Admin Dose 110 MLS/HR; Start 06/27/19 at 13:00; Stop 07/01/19 at 13:59 Furosemide (Lasix) 40 mg BID DIURETICS IV Last administered on 06/30/19 05:46; Admin Dose 40 MG; Start 06/27/19 at 18:00 Collagenase (Santyl) 1 applic DAILY TOP Last administered on 06/30/19 09:29; Admin Dose 1 APPLIC; Start 06/28/19 at 16:00 Vancomycin/Sodium Chloride 250 ml @ 125 mls/hr Q12H IVPB Last administered on 06/30/19 02:45; Admin Dose 125 MLS/HR; Start 06/29/19 at 15:00 Miscellaneous Information (*Rx Drug Level Order Reminder*) VANCOMYCIN TROUGH LEVEL 1400 ONCE XX ; Start 06/30/19 at 14:00; Stop 06/30/19 at 14:01 Multivitamins Therapeutic (Theragran) 1 tab DAILY PO Last administered on 8/9/19at 09:29; Admin Dose 1 TAB; Start 06/30/19 at 09:00 Ascorbic Acid (Vitamin C) 500 mg BID PO Last administered on 06/30/19 09:29; Admin Dose 500 MG; Start 06/29/19 at 21:00 Zinc Sulfate (Zinc Sulfate) 220 mg DAILY PO Last administered on 06/30/19 09:29; Admin Dose 220 MG; Start 06/30/19 at 09:00; Stop 07/10/19 at 08:59 Potassium Chloride (Potassium Chloride Pwd/Soln) 40 meq BID PO Last administered on 06/30/19at 10:05; Admin Dose 40 MEQ; Start 06/30/19 at 09:00 Enoxaparin Sodium (Lovenox) 30 mg DAILY SC ; Start 07/01/19 at 09:00 Potassium Chloride 100 ml @ 50 mls/hr Q2H IVPB ; Start 06/30/19 at 10:00; Stop 06/30/19 at 13:59 Assessment/Plan Hospital Course (Demo Recall) Assessment 1. Bilateral pneumonia and congestive cardiac failure with severe hypoxic respiratory failure 2. Possible aspiration component 3. Multiple myeloma Plan 1. Continue supplemental O2 2. Continue antibiotics and diuretics 3. aspiration precautions Thoracentesis right effusion with pleural fluid studies [facility] transfer after thoracentesis [facility] HOPE MD[facility] Jun 30, 2019 12:15
[2019-06-30] MEDS: FENTAnyl PATCH 12 MCG/HR TRANSDERM SCH (12:20)
--- NOTE | 2019-06-30 14:22 | PDOCDIS ---
Discharge Instructions DIAGNOSIS Discharge Diagnosis 1. Acute hypoxic respiratory failure secondary to Healthcare associated pneumonia and pleural effusions- improving 2. Hypertension 3. Bacteremia 4. Bilateral pneumonia 5. Bilateral effusions/ pulmonary congestion 6. Iron deficiency anemia 7. Acute on chronic systolic heart failure 8. h/o Multiple myeloma 9. Thrombocytopenia- stable 10. History of AVR 11. Hypokalemia CONDITION [id number] Patient Condition: [id number] Stable HOME CARE INSTRUCTIONS: [id number] Diet Instructions: [id number] Low Fat /Cholesterol ACTIVITY: [id number] Activity Restrictions: [id number] No Restrictions FOLLOW UP/APPOINTMENTS Follow-up Plan 1. Continue all medical care per recommendations of following physicians DEVEN PORRAS MD Jun 30, 2019 14:22
--- NOTE | 2019-06-30 15:06 | CONS ---
Assessment/Plan Assessment/Plan Hospital Course (Demo Recall) No acute events overnight patient is awake comfortable on high flow oxygen no fevers overnight WBC 9 platelets 87 neutrophils 68.1 BUN 18 creatinine 0.56 Microbiology: Blood culture on admission grew Corynebacterium species, repeat blood cultures negative Chest x-ray yesterday revealed improved upper lobe I aeration Antimicrobials: Patient is on vancomycin and cefepime Physical examination: Well-developed fragile elderly woman who is awake in no distress. Head atraumatic normocephalic. Neck is supple chest rise symmetrical breath sounds diminished bases. Heart: S1-S2. Abdomen soft bowel sounds present Assessment: 1. Acute hypoxemic respiratory failure 2. Bilateral pneumonia 3. CHF 4. Bacteremia consistent with contaminant 5. History of multiple myeloma Plan: Clinically stable, continue antibiotics, swab nares for MRSA, follow cardiology and pulmonary recommendations Consultation Date/Type/Reason Admit Date/Time Jun 26, 2019 at 19:19 Initial Consult Date 06/26/19 Type of Consult id Date/Time of Note DATE: 06/30/19 TIME: 15:05 Exam/Review of Systems Exam Vitals Vital Signs Date Temp Pulse Resp B/P (MAP) Pulse Ox O2 O2 Flow FiO2 Time Delivery Rate 06/30/19 94 60 12:54 06/30/19 98.6 59 18 157/70 11:19 (99) 06/30/19 Vapotherm 08:30 06/28/19 10.0 10:00 Intake and Output 06/29/19 06/29/19 06/30/19 1515:00 23:00 07:00 IntakeIntake Total 710 ml 650 ml OutputOutput Total 4 ml BalanceBalance 706 ml 650 ml Results Result Diagram: 06/30/19 0505 06/30/19 1422 Results 24hrs Laboratory Tests Test 06/30/19 01:56 06/30/19 05:05 06/30/19 14:22 Vancomycin Level Trough 14.1 White Blood Count 9.0 Red Blood Count 3.51 L Hemoglobin 10.8 L Hematocrit 35.0 L Mean Corpuscular Volume 99.7 Mean Corpuscular Hemoglobin 30.8 Mean Corpuscular Hemoglobin Concent 30.9 L Red Cell Distribution Width 18.0 H Platelet Count 87 L Mean Platelet Volume 9.6 Immature Granulocytes % 2.900 H Neutrophils % 68.1 Lymphocytes % 17.6 Monocytes % 9.1 Eosinophils % 2.0 Basophils % 0.3 Nucleated Red Blood Cells % 0.0 Immature Granulocytes # 0.260 H Neutrophils # 6.2 Lymphocytes # 1.6 Monocytes # 0.8 Eosinophils # 0.2 Basophils # 0.0 Nucleated Red Blood Cells # 0.0 Sodium Level 140 Potassium Level 3.2 L 4.0 Chloride Level 100 Carbon Dioxide Level 40 H Anion Gap 0 L Blood Urea Nitrogen 18 Creatinine 0.56 Glucose Level 130 Calcium Level 8.7 Phosphorus Level 3.1 Magnesium Level 1.7 Albumin 2.7 L Medications Medication Current Medications IV Flush (NS 3 ml) 3 ml PER PROTOCOL IV ; Start 06/26/19 at 10:00 Ondansetron HCl (Zofran Inj) 4 mg Q6H PRN IV NAUSEA/VOMITING; Start 06/26/19 at 10:00 Acetaminophen (Tylenol Tab) 650 mg Q6H PRN PO .PAIN 1-3 OR TEMP Last administered on 06/30/19at 02:01; Admin Dose 650 MG; Start 06/26/19 at 10:00 Pantoprazole (Protonix Iv) 40 mg DAILY@06 IV Last administered on 06/30/19at 05:47; Admin Dose 40 MG; Start 06/26/19 at 11:00 Albuterol/ Ipratropium (Duoneb) 3 ml Q2H RESP THERAPY PRN HHN SHORTNESS OF BREATH Last administered on 06/27/19at 05:24; Admin Dose 3 ML; Start 06/26/19 at 10:00 Vancomycin HCl (Vanco Iv Per Pharmacy) VANCOMYCIN PER PHARMACY PER PROTOCOL XX ; Start 06/27/19 at 03:00 Cefepime HCl 50 ml @ 100 mls/hr Q12H IVPB Last administered on 06/30/19at 01:26; Admin Dose 100 MLS/HR; Start 06/26/19 at 14:00 Aspirin (Halfprin) 81 mg DAILY PO Last administered on 06/30/19 09:28; Admin Dose 81 MG; Start 06/27/19 at 09:00 Eye Lubricant (Akwa Oint) 1 applic TID PRN BOTH EYES DRY EYES; Start 06/26/19 at 17:30 Docusate Sodium (Colace) 250 mg BID PO Last administered on 06/30/19at 09:27; Admin Dose 250 MG; Start 06/26/19 at 21:00 Gabapentin (Neurontin) 100 mg TID PO Last administered on 06/30/19 13:47; Admin Dose 100 MG; Start 06/26/19 at 21:00 Levothyroxine Sodium (Synthroid) 100 mcg AC BREAKFAST PO Last administered on 06/30/19 05:47; Admin Dose 100 MCG; Start 06/27/19 at 07:00 Tramadol HCl (Ultram) 50 mg Q6H PRN PO PAIN Last administered on 06/27/19 04:12; Admin Dose 50 MG; Start 06/26/19 at 17:30 Fentanyl (Duragesic 12 Mcg/Hr Patch) 1 patch Q72H TRANSDERM Last administered on 06/30/19 12:20; Admin Dose 1 PATCH; Start 06/27/19 at 10:00 Hydralazine HCl (Apresoline) 10 mg Q6H PRN IV HTN Last administered on 06/27/19 08:42; Admin Dose 10 MG; Start 06/27/19 at 04:00 Amlodipine Besylate (Norvasc) 5 mg BID PO Last administered on 06/30/19 09:29; Admin Dose 5 MG; Start 06/27/19 at 09:00 Carvedilol (Coreg) 25 mg BID WITH MEALS PO Last administered on 06/30/19 09:27; Admin Dose 25 MG; Start 06/27/19 at 09:00 Losartan Potassium (Cozaar) 100 mg DAILY PO Last administered on 06/30/19 09:27; Admin Dose 100 MG; Start 06/27/19 at 09:00 Ferric Sodium Gluconate Complex 125 mg/Sodium Chloride 110 ml @ 110 mls/hr DAILY@1300 IVPB Last administered on 06/29/19 13:57; Admin Dose 110 MLS/HR; Start 06/27/19 at 13:00; Stop 07/01/19 at 13:59 Furosemide (Lasix) 40 mg BID DIURETICS IV Last administered on 06/30/19 05:46; Admin Dose 40 MG; Start 06/27/19 at 18:00 Collagenase (Santyl) 1 applic DAILY TOP Last administered on 06/30/19 09:29; Admin Dose 1 APPLIC; Start 06/28/19 at 16:00 Vancomycin/Sodium Chloride 250 ml @ 125 mls/hr Q12H IVPB Last administered on 06/30/19 02:45; Admin Dose 125 MLS/HR; Start 06/29/19 at 15:00 Multivitamins Therapeutic (Theragran) 1 tab DAILY PO Last administered on 06/30/19 09:29; Admin Dose 1 TAB; Start 06/30/19 at 09:00 Ascorbic Acid (Vitamin C) 500 mg BID PO Last administered on 06/30/19 09:29; Admin Dose 500 MG; Start 06/29/19 at 21:00 Zinc Sulfate (Zinc Sulfate) 220 mg DAILY PO Last administered on 06/30/19 09:29; Admin Dose 220 MG; Start 06/30/19 at 09:00; Stop 07/10/19 at 08:59 Potassium Chloride (Potassium Chloride Pwd/Soln) 40 meq BID PO Last administered on 06/30/19 10:05; Admin Dose 40 MEQ; Start 06/30/19 at 09:00 Enoxaparin Sodium (Lovenox) 30 mg DAILY SC ; Start 07/01/19 at 09:00 GERSON SPANN NP Jun 30, 2019 15:06
[2019-06-30 16:00] VITALS: BP 173/70; PULSE 66; RESP 22
[2019-06-30] MEDS: SOD FERRIC GLUC COMPLX 125 MG in SOD CHLORIDE 0.9% 100 ML IVPB SCH (16:26)
--- NOTE | 2019-06-30 16:28 | DS ---
Date/Time of Note Date/Time of Note DATE: 06/30/19 TIME: 16:15 Discharge Summary Admission/Discharge Info Admit Date/Time Jun 26, 2019 at 19:19 Discharge Date/Time 07/01/19 1222 Discharge Diagnosis 1. Acute hypoxic respiratory failure secondary to Healthcare associated pneumonia and pleural effusions- improving 2. Hypertension 3. Bacteremia 4. Bilateral pneumonia 5. Bilateral effusions/ pulmonary congestion 6. Iron deficiency anemia 7. Acute on chronic systolic heart failure 8. h/o Multiple myeloma 9. Thrombocytopenia- stable 10. History of AVR 11. Hypokalemia Patient Condition: Stable Consults Pulmonology- Dr. Mclaughlin Infectious disease- Dr. Domingo Procedures Thoracentesis Hx of Present Illness Patient is an 88-year-old female with a history of hypertension, asthma, CHF, anemia, AVR, multiple myeloma who was sent from [facility] for hypoxia. When presented to ER, her BP was 88/53, respiratory 26. Patient was given IV fluids with improvement in her blood pressure. Patient was also hypoxic with O2 sat in the 80s and has been placed on 15 L nonrebreather mask. Chest x-ray shows Bilateral lung base atelectasis versus airspace disease with bilateral small pleural effusions and airspace disease is right greater than left, and differential considerations include bilateral lung base pneumonias. She was treated with vancomycin and cefepime. Labs shows a hemoglobin of 7.7. I spoke with the patient's son, Yeyo ([phone]). He said the patient has a history of multiple myeloma for which she takes palm for 21 days, alternating with dexamethasone. Patient presented with a minimum of 7.7. He is not aware of history of anemia and a reported no GI bleed. She has a history of AVR, takes aspirin and no blood thinner. Hospital Course Patient was admitted for acute respiratory failure and found with bilateral pneumonia as well as pleural effusions. She was placed on high flow in the ED and Pulmonology was consulted. She was started on broad spectrum antibiotics and sepsis workup was initiated. Given initial hypotension, all home blood pressure medications were held. She was also started on Lasix 40mg IV BID given effusions and pulmonary congestion. Patient had ECHO performed which showed severe mitral stenosis which was most likely contributing to her shortness of breath. She was improving during course of hospitalization and FIO2 was able to be weaned down to 50% with no noted respiratory distress. Patient was found with positives blood cultures and infectious disease was consulted for antibiotic management. Repeat blood cultures were negative as well. Patient home blood pressure medications were restarted when sepsis improved and patient was now hypertensive. Of note, patient is currently under treatment for multiple myeloma and on her chemotherapy regime currently, which was held due to pneumonia and bacteremia. Patients was noted with large right pleural effusion on CXR and thoracentesis was performed with 460cc removed. Patient remained stable on 50% FIO2 but still required aggressive pulmonary toilet. Vitals remained stable. She was accepted to [place] for further respiratory therapy and weaning from high flow. Patient was discharged in stable condition. Home Meds Reported Medications Tramadol Hcl* (Ultram*) 50 Mg Tablet, 50 MG PO Q6H PRN for PAIN, TAB 06/26/19 Artificial Tears* (Akwa Oint*) 3.5 Gm Oint, 1 APPLIC BOTH EYES TID PRN for DRY EYES, #1 TUB 06/26/19 Sennosides* (Senna Lax*) 8.6 Mg Tablet, 1 TAB PO BID, TAB Hold if loose stool. 06/26/19 Esomeprazole Mag Trihydrate (Nexium) 40 Mg Capsule.dr, 40 MG PO AC BREAKFAST, #30 CAP 06/26/19 Losartan Potassium* (Losartan Potassium*) 100 Mg Tablet, 100 MG PO DAILY, TAB Hold if SBP<110. 06/26/19 Levothyroxine Sodium* (Synthroid*) 100 Mcg Tablet, 100 MCG PO AC BREAKFAST, #30 TAB 06/26/19 Acetaminophen* (Acetaminophen*) 325 Mg Tablet, 325 MG PO Q4H PRN for PAIN LEVEL 1-5, #30 TAB 06/26/19 Gabapentin* (Gabapentin*) 100 Mg Capsule, 100 MG PO TID, #90 CAP 06/26/19 Docusate Sodium* (Colace*) 250 Mg Capsule, 250 MG PO BID, #60 CAP Hold if loose stool. 06/26/19 Carvedilol* (Carvedilol*) 25 Mg Tablet, 25 MG PO BID WITH MEALS, #60 TAB HOLD IF SBP<110. 06/26/19 Aspirin* (Aspirin* EC) 81 Mg Tablet.dr, 81 MG PO WITH BREAKFAST, TAB QAM WITH FOOD. 06/26/19 Amlodipine Besylate* (Amlodipine Besylate*) 5 Mg Tablet, 5 MG PO BID, #30 TAB HOLD IF SBP<110. 06/26/19 Multivitamin with Minerals (Multiple Vitamin) 1 Each Tablet, 1 EACH PO QAM, TAB 06/26/19 Ascorbic Acid* (Vitamin C*) 500 Mg Capsule.sa, 500 MG PO DAILY for 30 Days, CAP 06/26/19 Discontinued Reported Medications Hydrocodone/Acetaminophen ([place] 7.5-325 Tablet) 1 Each Tablet, 1 EACH PO DAILY for PAIN, TAB 06/26/19 Furosemide* (Furosemide*) 20 Mg Tablet, 20 MG PO, #30 TAB 1 tab oral Q Wednesday. 06/26/19 Dexamethasone* (Dexamethasone*) 4 Mg Tablet, 40 MG PO, TAB Dexamethasone 40MG oral Q Wednesday. 06/26/19 Follow-up Plan 1. Continue all medical care per recommendations of following physicians Primary Care Provider Not On Staff Doctor Time spent on discharge: > 30 minutes Pending Labs Laboratory Tests Test 06/30/19 01:56 06/30/19 05:05 06/30/19 14:22 Vancomycin Level 14.1 15.5 Trough ug/ml (10.0-20.0) ug/ml (10.0-20.0) White Blood Count 9.0 10^3/ul (4.8-10.8) Red Blood Count 3.51 10^6/ul (4.20-5.40 ) Hemoglobin 10.8 g/dl (12.0-16.0) Hematocrit 35.0 % (37.0-47.0) Mean Corpuscular 99.7 Volume fl (82.0-101.0) Mean Corpuscular 30.8 Hemoglobin pg (29.0-33.0) Mean Corpuscular 30.9 Hemoglobin Concent g/dl (32.0-37.0) Red Cell 18.0 % (11.5-14.5) Distribution Width Platelet Count 87 10^3/UL (140-415) Mean Platelet 9.6 fl (7.4-10.4) Volume Immature 2.900 Granulocytes % % (0.001-0.429) Neutrophils % 68.1 % (39.0-77.0) Lymphocytes % 17.6 % (15.0-51.0) Monocytes % 9.1 % (0.0-11.0) Eosinophils % 2.0 % (0.0-7.0) Basophils % 0.3 % (0.0-2.0) Nucleated Red Blood 0.0 Cells % /100WBC (0.0-0.0) Immature 0.260 Granulocytes # 10^3/ul (0.0-0.031 ) Neutrophils # 6.2 10^3/ul (1.6-7.5) Lymphocytes # 1.6 10^3/ul (0.8-2.9) Monocytes # 0.8 10^3/ul (0.3-0.9) Eosinophils # 0.2 10^3/ul (0.0-0.5) Basophils # 0.0 10^3/ul (0.0-0.1) Nucleated Red Blood 0.0 Cells # 10^3/ul (0.0-0.0) Sodium Level 140 mmol/L (135-144) Potassium Level 3.2 4.0 mmol/L (3.5-5.1) mmol/L (3.5-5.1) Chloride Level 100 mmol/L (97-110) Carbon Dioxide 40 mmol/L (21-31) Level Anion Gap 0 (5-13) Blood Urea 18 mg/dl (7-20) Nitrogen Creatinine 0.56 mg/dl (0.44-1.00) Glucose Level 130 mg/dl (70-220) Calcium Level 8.7 mg/dl (8.4-10.2) Phosphorus Level 3.1 mg/dl (2.5-4.9) Magnesium Level 1.7 mg/dl (1.7-2.5) Albumin 2.7 g/dl (3.3-4.9) DEVEN PORRAS MD Jun 30, 2019 16:28
[2019-06-30] MEDS: hydrALAzine 20 MG INJ IV PRN (16:29)
[2019-06-30] MEDS ORDERED: LIDOCAINE 1% (MPF) 5 ML VIAL ONE ×2 (18:03)
[2019-06-30 18:50] VITALS: BP 144/67; PULSE 56; RESP 20
[2019-06-30 20:00] VITALS: BP 144/67; PULSE 56; RESP 18
[2019-07-01] VITALS: BP 128/60; PULSE 64; RESP 19
[2019-07-01] MEDS: CEFEPIME 1GM/50 ML (PMX) 50 ML IVPB SCH (02:18)
[2019-07-01 04:00] VITALS: BP 162/70; PULSE 67; RESP 18
[2019-07-01] MEDS: LEVOTHYROXINE 100 MCG TAB PO SCH (05:40)
[2019-07-01] MEDS: PANTOPRAZOLE 40 MG INJ IV SCH (05:40)
[2019-07-01] MEDS: FUROSEMIDE 40 MG INJ IV SCH (05:41)
[2019-07-01 07:12] VITALS: BP 147/68; PULSE 66; RESP 18
[2019-07-01] MEDS: VANCOMYCIN 750 MG (PMX) 250 ML IVPB SCH (08:12)
[2019-07-01] MEDS: GABAPENTIN 100 MG CAP PO SCH (08:20)
[2019-07-01] MEDS: LOSARTAN 50 MG TAB PO SCH (08:20)
[2019-07-01] MEDS: ASPIRIN (EC) 81 MG TAB PO SCH (08:20)
[2019-07-01] MEDS: DOCUSATE SODIUM 250 MG CAP PO SCH (08:20)
[2019-07-01] MEDS: POTASSIUM CHLORIDE 20 MEQ POWDER FOR ORAL SOLN PO SCH (08:21)
[2019-07-01] MEDS: MULTIVITAMINS THERAPEUTIC TAB PO SCH (08:21)
[2019-07-01] MEDS: AMLODIPINE 5 MG TAB PO SCH (08:21)
[2019-07-01] MEDS: ASCORBIC ACID 500 MG TAB PO SCH (08:21)
[2019-07-01] MEDS: ZINC SULFATE 220 MG CAP PO SCH (08:21)
[2019-07-01] MEDS: COLLAGENASE 5 GM (UD JAR) TOP SCH (08:22)
[2019-07-01] MEDS: BALSAM PERU/CASTOR OIL 60 GM TUBE TOP SCH (08:22)
[2019-07-01] MEDS ORDERED: ENOXAPARIN 30 MG/0.3 ML SYG SC SCH (09:00)
--- NOTE | 2019-07-01 09:06 | CONS ---
Assessment/Plan Assessment/Plan Hospital Course (Demo Recall) All noted. No acute events overnight Microbiology: Blood culture on admission grew Corynebacterium species, repeat blood cultures negative Chest x-ray yesterday revealed improved upper lobe I aeration Antimicrobials: Patient is on vancomycin and cefepime Physical examination: Well-developed fragile elderly woman who is awake in no distress. Head atraumatic normocephalic. Neck is supple chest rise symmetrical breath sounds diminished bases. Heart: S1-S2. Abdomen soft bowel sounds present Assessment: 1. Acute hypoxemic respiratory failure 2. Bilateral pneumonia 3. CHF 4. Bacteremia consistent with contaminant 5. History of multiple myeloma Plan: Clinically stable, repeat bld cx neg, continue broad sp antibiotics for PNA, follow cardiology and pulmonary recommendations Consultation Date/Type/Reason Admit Date/Time Jun 26, 2019 at 19:19 Initial Consult Date 06/26/19 Type of Consult id Date/Time of Note DATE: 07/01/19 TIME: 09:05 Exam/Review of Systems Exam Vitals Vital Signs Date Temp Pulse Resp B/P (MAP) Pulse Ox O2 O2 Flow FiO2 Time Delivery Rate 07/01/19 98.3 66 18 147/68 92 High Flow 07:12 (94) 07/01/19 65 05:27 06/30/19 25.0 20:27 Intake and Output 06/30/19 06/30/19 07/01/19 1515:00 23:00 07:00 IntakeIntake Total 50 ml 910 ml 450 ml BalanceBalance 50 ml 910 ml 450 ml Results Result Diagram: 06/30/19 0505 06/30/19 1422 Results 24hrs Laboratory Tests Test 06/30/19 14:22 Potassium Level 4.0 Vancomycin Level Trough 15.5 Medications Medication Current Medications IV Flush (NS 3 ml) 3 ml PER PROTOCOL IV ; Start 06/26/19 at 10:00 Ondansetron HCl (Zofran Inj) 4 mg Q6H PRN IV NAUSEA/VOMITING; Start 06/26/19 at 10:00 Acetaminophen (Tylenol Tab) 650 mg Q6H PRN PO .PAIN 1-3 OR TEMP Last administered on 06/30/19at 02:01; Admin Dose 650 MG; Start 06/26/19 at 10:00 Pantoprazole (Protonix Iv) 40 mg DAILY@06 IV Last administered on 07/01/19 05:40; Admin Dose 40 MG; Start 06/26/19 at 11:00 Albuterol/ Ipratropium (Duoneb) 3 ml Q2H RESP THERAPY PRN HHN SHORTNESS OF BREATH Last administered on 06/27/19 05:24; Admin Dose 3 ML; Start 06/26/19 at 10:00 Vancomycin HCl (Vanco Iv Per Pharmacy) VANCOMYCIN PER PHARMACY PER PROTOCOL XX ; Start 06/27/19 at 03:00 Cefepime HCl 50 ml @ 100 mls/hr Q12H IVPB Last administered on 07/01/19 02 :18; Admin Dose 100 MLS/HR; Start 06/26/19 at 14:00 Aspirin (Halfprin) 81 mg DAILY PO Last administered on 07/01/19 08:20; Admin Dose 81 MG; Start 06/27/19 at 09:00 Eye Lubricant (Akwa Oint) 1 applic TID PRN BOTH EYES DRY EYES; Start 06/26/19 at 17:30 Docusate Sodium (Colace) 250 mg BID PO Last administered on 07/01/19 08:20; Admin Dose 250 MG; Start 06/26/19 at 21:00 Gabapentin (Neurontin) 100 mg TID PO Last administered on 07/01/19 08:20; Admin Dose 100 MG; Start 06/26/19 at 21:00 Levothyroxine Sodium (Synthroid) 100 mcg AC BREAKFAST PO Last administered on 07/01/19 05:40; Admin Dose 100 MCG; Start 06/27/19 at 07:00 Tramadol HCl (Ultram) 50 mg Q6H PRN PO PAIN Last administered on 06/27/19 04:12; Admin Dose 50 MG; Start 06/26/19 at 17:30 Fentanyl (Duragesic 12 Mcg/Hr Patch) 1 patch Q72H TRANSDERM Last administered on 06/30/19 12:20; Admin Dose 1 PATCH; Start 06/27/19 at 10:00 Hydralazine HCl (Apresoline) 10 mg Q6H PRN IV HTN Last administered on 06/30/19 16:29; Admin Dose 10 MG; Start 06/27/19 at 04:00 Amlodipine Besylate (Norvasc) 5 mg BID PO Last administered on 07/01/19 08:21; Admin Dose 5 MG; Start 06/27/19 at 09:00 Losartan Potassium (Cozaar) 100 mg DAILY PO Last administered on 07/01/19 08:20; Admin Dose 100 MG; Start 06/27/19 at 09:00 Ferric Sodium Gluconate Complex 125 mg/Sodium Chloride 110 ml @ 110 mls/hr DAILY@1300 IVPB Last administered on 06/30/19 16:26; Admin Dose 110 MLS/HR; Start 06/27/19 at 13:00; Stop 07/01/19 at 13:59 Furosemide (Lasix) 40 mg BID DIURETICS IV Last administered on 07/01/19 05:41; Admin Dose 40 MG; Start 06/27/19 at 18:00 Collagenase (Santyl) 1 applic DAILY TOP Last administered on 07/01/19 08:22; Admin Dose 1 APPLIC; Start 06/28/19 at 16:00 Multivitamins Therapeutic (Theragran) 1 tab DAILY PO Last administered on 07/01/19 08:21; Admin Dose 1 TAB; Start 06/30/19 at 09:00 Ascorbic Acid (Vitamin C) 500 mg BID PO Last administered on 06/30/19 21:04; Admin Dose 500 MG; Start 06/29/19 at 21:00 Zinc Sulfate (Zinc Sulfate) 220 mg DAILY PO Last administered on 06/30/19 09:29; Admin Dose 220 MG; Start 06/30/19 at 09:00; Stop 07/10/19 at 08:59 Potassium Chloride (Potassium Chloride Pwd/Soln) 40 meq BID PO Last administered on 07/01/19 08:21; Admin Dose 40 MEQ; Start 06/30/19 at 09:00 Enoxaparin Sodium (Lovenox) 30 mg DAILY SC Last administered on 07/01/19 08:57; Admin Dose 30 MG; Start 07/01/19 at 09:00 Vancomycin/Sodium Chloride 250 ml @ 125 mls/hr Q12H IVPB Last administered on 07/01/19 08:12; Admin Dose 125 MLS/HR; Start 06/30/19 at 20:00 Carvedilol (Coreg) 25 mg QAM PO Last administered on 07/01/19 08:20; Admin Dose 25 MG; Start 07/01/19 at 09:00 GERSON SPANN NP Jul 01, 2019 09:06
--- NOTE | 2019-07-01 10:00 | PN ---
Date/Time of Note Date/Time of Note DATE: 07/01/19 TIME: 09:55 Assessment/Plan VTE Prophylaxis Risk score (from Ns)>0 risk: 9 SCD applied (from Ns): Yes Pharmacological prophylaxis: LMWH Lines/Catheters IV [facility]from [facility] Peripheral IV Urinary Cath still in place: No Assessment/Plan Assessment/Plan 1. Acute hypoxic respiratory failure secondary to Healthcare associated p neumonia and pleural effusions - still with productive cough but weaning down FIO2 as able. Currently on 65% this am - Pulmonology consultation appreciated and will continue current care. - continue IV antibiotics and Nebs 2. Hypertension - stable - continue to monitor and adjust as needed 3. Bacteremia - blood cultures growing corynebacterium. Repeat negative - ID on board and appreciate recommendations. continue current antibiotics 4. Bilateral pneumonia - IV antibiotics and neb tx - wean O2 as tolerated 5. Bilateral effusions/ pulmonary congestion - most likely secondary to MV stenosis. Will most likely need replacement and will discuss with son since has had AVR in past - s/p thoracentesis 06/30/19 with 460cc removed 6. Iron deficiency anemia - hgb remains stable. will need to continue on PO iron supplements after discharge 7. Acute on chronic systolic heart failure - Elevated BNP noted - ECHO noted with severe mitral stenosis, EF 65% - monitoring daily weights, I/O - continue on Lasix BID 8. h/o Multiple myeloma - per son, she started on therapy 6 months ago and currently on round of Palmaris. Will hold at this time given bilateral pneumonia - follows with Dr. Rick as outpatient - Pain management. Patient has fentanyl patch 9. Thrombocytopenia- stable - monitor 10. History of AVR - continue on aspirin. seen on ECHO 11. Disposition - Patient remains medically stable - Cleared for discharge to [place] Result Diagram: 06/30/19 0505 06/30/19 1422 Results 24hrs Laboratory Tests Test 06/30/19 14:22 Potassium Level 4.0 Vancomycin Level Trough 15.5 Subjective 24 Hr Interval Summary Free Text/Dictation Patient still with productive cough but states shes okay. No acute overnight events. HR was noted to be low last night and BB adjusted. Exam/Review of Systems Exam Vitals Vital Signs Date Temp Pulse Resp B/P (MAP) Pulse Ox O2 O2 Flow FiO2 Time Delivery Rate 07/01/19 98.3 66 18 147/68 92 High Flow 07:12 (94) 07/01/19 65 05:27 06/30/19 25.0 20:27 Intake and Output 06/30/19 06/30/19 07/01/19 1515:00 23:00 07:00 IntakeIntake Total 50 ml 910 ml 450 ml BalanceBalance 50 ml 910 ml 450 ml Exam General: Patient in no acute distress. on high flow. productive cough noted Neck: Supple Respiratory: improved coarse breath sounds bilaterally. no wheezing Cardiovascular: S1, S2, regular rate and rhythm, no obvious murmurs Gastrointestinal:soft, nontender palpation, nondistended, bowel sounds heard. no rebound or guarding Ext: Moves all extremities spontaneously. no edema appreciated Skin: No new skin lesions Results Results 24hrs Laboratory Tests Test 06/30/19 14:22 Potassium Level 4.0 Vancomycin Level Trough 15.5 Medications Medication Current Medications IV Flush (NS 3 ml) 3 ml PER PROTOCOL IV ; Start 06/26/19 at 10:00 Ondansetron HCl (Zofran Inj) 4 mg Q6H PRN IV NAUSEA/VOMITING; Start 06/26/19 at 10:00 Acetaminophen (Tylenol Tab) 650 mg Q6H PRN PO .PAIN 1-3 OR TEMP Last administered on 06/30/19at 02:01; Admin Dose 650 MG; Start 06/26/19 at 10:00 Pantoprazole (Protonix Iv) 40 mg DAILY@06 IV Last administered on 07/01/19at 05:40; Admin Dose 40 MG; Start 06/26/19 at 11:00 Albuterol/ Ipratropium (Duoneb) 3 ml Q2H RESP THERAPY PRN HHN SHORTNESS OF BREATH Last administered on 06/27/19at 05:24; Admin Dose 3 ML; Start 06/26/19 at 10:00 Vancomycin HCl (Vanco Iv Per Pharmacy) VANCOMYCIN PER PHARMACY PER PROTOCOL XX ; Start 06/27/19 at 03:00 Cefepime HCl 50 ml @ 100 mls/hr Q12H IVPB Last administered on 07/01/19at 02:18; Admin Dose 100 MLS/HR; Start 06/26/19 at 14:00 Aspirin (Halfprin) 81 mg DAILY PO Last administered on 07/01/19at 08:20; Admin Dose 81 MG; Start 06/27/19 at 09:00 Eye Lubricant (Akwa Oint) 1 applic TID PRN BOTH EYES DRY EYES; Start 06/26/19 at 17:30 Docusate Sodium (Colace) 250 mg BID PO Last administered on 07/01/19 08:20; Admin Dose 250 MG; Start 06/26/19 at 21:00 Gabapentin (Neurontin) 100 mg TID PO Last administered on 07/01/19 08:20; Admin Dose 100 MG; Start 06/26/19 at 21:00 Levothyroxine Sodium (Synthroid) 100 mcg AC BREAKFAST PO Last administered on 07/01/19 05:40; Admin Dose 100 MCG; Start 06/27/19 at 07:00 Tramadol HCl (Ultram) 50 mg Q6H PRN PO PAIN Last administered on 06/27/19 04:12; Admin Dose 50 MG; Start 06/26/19 at 17:30 Fentanyl (Duragesic 12 Mcg/Hr Patch) 1 patch Q72H TRANSDERM Last administered on 06/30/19 12:20; Admin Dose 1 PATCH; Start 06/27/19 at 10:00 Hydralazine HCl (Apresoline) 10 mg Q6H PRN IV HTN Last administered on 06/30/19 16:29; Admin Dose 10 MG; Start 06/27/19 at 04:00 Amlodipine Besylate (Norvasc) 5 mg BID PO Last administered on 07/01/19 08:21; Admin Dose 5 MG; Start 06/27/19 at 09:00 Losartan Potassium (Cozaar) 100 mg DAILY PO Last administered on 07/01/19 08:20; Admin Dose 100 MG; Start 06/27/19 at 09:00 Ferric Sodium Gluconate Complex 125 mg/Sodium Chloride 110 ml @ 110 mls/hr DAILY@1300 IVPB Last administered on 06/30/19 16:26; Admin Dose 110 MLS/HR; Start 06/27/19 at 13:00; Stop 07/01/19 at 13:59 Furosemide (Lasix) 40 mg BID DIURETICS IV Last administered on 07/01/19 05:41; Admin Dose 40 MG; Start 06/27/19 at 18:00 Collagenase (Santyl) 1 applic DAILY TOP Last administered on 07/01/19 08:22; Admin Dose 1 APPLIC; Start 06/28/19 at 16:00 Multivitamins Therapeutic (Theragran) 1 tab DAILY PO Last administered on 07/01/19 08:21; Admin Dose 1 TAB; Start 06/30/19 at 09:00 Ascorbic Acid (Vitamin C) 500 mg BID PO Last administered on 06/30/19 21:04; Admin Dose 500 MG; Start 06/29/19 at 21:00 Zinc Sulfate (Zinc Sulfate) 220 mg DAILY PO Last administered on 06/30/19 09:29; Admin Dose 220 MG; Start 06/30/19 at 09:00; Stop 07/10/19 at 08:59 Potassium Chloride (Potassium Chloride Pwd/Soln) 40 meq BID PO Last administered on 07/01/19 08:21; Admin Dose 40 MEQ; Start 06/30/19 at 09:00 Enoxaparin Sodium (Lovenox) 30 mg DAILY SC Last administered on 07/01/19 08:57; Admin Dose 30 MG; Start 07/01/19 at 09:00 Vancomycin/Sodium Chloride 250 ml @ 125 mls/hr Q12H IVPB Last administered on 07/01/19 08:12; Admin Dose 125 MLS/HR; Start 06/30/19 at 20:00 Carvedilol (Coreg) 25 mg QAM PO Last administered on 07/01/19 08:20; Admin Dose 25 MG; Start 07/01/19 at 09:00 DEVEN PORRAS MD Jul 01, 2019 10:00
[2019-07-01] MEDS: ALBUTEROL/IPRATROPIUM (NEB) 3 ML AMP HHN PRN (11:00)
--- NOTE | 2019-07-01 11:11 | CONS ---
Consult Date/Type/Reason Admit Date/Time Jun 26, 2019 at 19:19 Initial Consult Date 06/26/19 Type of Consult Pulmonary Date/Time of Note DATE: 07/01/19 TIME: 11:10 Subjective Asymptomatic bradycardia yesterday. Objective Vital Signs Date Temp Pulse Resp B/P (MAP) Pulse Ox O2 O2 Flow FiO2 Time Delivery Rate 07/01/19 98.3 66 18 147/68 92 High Flow 07:12 (94) 07/01/19 65 05:27 06/30/19 25.0 20:27 Intake and Output 06/30/19 06/30/19 07/01/19 1515:00 23:00 07:00 IntakeIntake Total 50 ml 910 ml 450 ml BalanceBalance 50 ml 910 ml 450 ml Exam GENERAL: Elderly appearing lady on high flow O2 VITAL SIGNS: per chart NECK: Supple. No JVD or lymphadenopathy. CARDIAC EXAM: S1, S2. No added sounds or murmurs. CHEST: Diminished air entry bilaterally ABDOMEN: Soft, nontender. No guarding or rebound. EXTREMITIES: No cyanosis, clubbing or edema. NEUROLOGIC: Generalized weakness. No focal deficits. Vent Setting Fraction of Inspired Oxygen pe: 65 Results/Medications Result Diagram: 06/30/19 0505 06/30/19 1422 Results 24 hrs Laboratory Tests Test 06/30/19 14:22 Potassium Level 4.0 Vancomycin Level Trough 15.5 Medications Current Medications IV Flush (NS 3 ml) 3 ml PER PROTOCOL IV ; Start 06/26/19 at 10:00 Ondansetron HCl (Zofran Inj) 4 mg Q6H PRN IV NAUSEA/VOMITING; Start 06/26/19 at 10:00 Acetaminophen (Tylenol Tab) 650 mg Q6H PRN PO .PAIN 1-3 OR TEMP Last administered on 06/30/19at 02:01; Admin Dose 650 MG; Start 06/26/19 at 10:00 Pantoprazole (Protonix Iv) 40 mg DAILY@06 IV Last administered on 07/01/19at 05:40; Admin Dose 40 MG; Start 06/26/19 at 11:00 Albuterol/ Ipratropium (Duoneb) 3 ml Q2H RESP THERAPY PRN HHN SHORTNESS OF BREATH Last administered on 07/01/19at 11:00; Admin Dose 3 ML; Start 06/26/19 at 10:00 Vancomycin HCl (Vanco Iv Per Pharmacy) VANCOMYCIN PER PHARMACY PER PROTOCOL XX ; Start 06/27/19 at 03:00 Cefepime HCl 50 ml @ 100 mls/hr Q12H IVPB Last administered on 07/01/19 02:18; Admin Dose 100 MLS/HR; Start 06/26/19 at 14:00 Aspirin (Halfprin) 81 mg DAILY PO Last administered on 07/01/19 08:20; Admin Dose 81 MG; Start 06/27/19 at 09:00 Eye Lubricant (Akwa Oint) 1 applic TID PRN BOTH EYES DRY EYES; Start 06/26/19 at 17:30 Docusate Sodium (Colace) 250 mg BID PO Last administered on 07/01/19 08:20; Admin Dose 250 MG; Start 06/26/19 at 21:00 Gabapentin (Neurontin) 100 mg TID PO Last administered on 07/01/19 08:20; Admin Dose 100 MG; Start 06/26/19 at 21:00 Levothyroxine Sodium (Synthroid) 100 mcg AC BREAKFAST PO Last administered on 07/01/19 05:40; Admin Dose 100 MCG; Start 06/27/19 at 07:00 Tramadol HCl (Ultram) 50 mg Q6H PRN PO PAIN Last administered on 06/27/19 04:12; Admin Dose 50 MG; Start 06/26/19 at 17:30 Fentanyl (Duragesic 12 Mcg/Hr Patch) 1 patch Q72H TRANSDERM Last administered on 06/30/19 12:20; Admin Dose 1 PATCH; Start 06/27/19 at 10:00 Hydralazine HCl (Apresoline) 10 mg Q6H PRN IV HTN Last administered on 06/30/19 16:29; Admin Dose 10 MG; Start 06/27/19 at 04:00 Amlodipine Besylate (Norvasc) 5 mg BID PO Last administered on 07/01/19 08:21; Admin Dose 5 MG; Start 06/27/19 at 09:00 Losartan Potassium (Cozaar) 100 mg DAILY PO Last administered on 07/01/19 08:20; Admin Dose 100 MG; Start 06/27/19 at 09:00 Ferric Sodium Gluconate Complex 125 mg/Sodium Chloride 110 ml @ 110 mls/hr DAILY@1300 IVPB Last administered on 06/30/19 16:26; Admin Dose 110 MLS/HR; Start 06/27/19 at 13:00; Stop 07/01/19 at 13:59 Furosemide (Lasix) 40 mg BID DIURETICS IV Last administered on 07/01/19 05:41; Admin Dose 40 MG; Start 06/27/19 at 18:00 Collagenase (Santyl) 1 applic DAILY TOP Last administered on 07/01/19 08:22; Admin Dose 1 APPLIC; Start 06/28/19 at 16:00 Multivitamins Therapeutic (Theragran) 1 tab DAILY PO Last administered on 07/01/19 08:21; Admin Dose 1 TAB; Start 06/30/19 at 09:00 Ascorbic Acid (Vitamin C) 500 mg BID PO Last administered on 06/30/19 21:04; Admin Dose 500 MG; Start 06/29/19 at 21:00 Zinc Sulfate (Zinc Sulfate) 220 mg DAILY PO Last administered on 06/30/19 09:29; Admin Dose 220 MG; Start 06/30/19 at 09:00; Stop 07/10/19 at 08:59 Potassium Chloride (Potassium Chloride Pwd/Soln) 40 meq BID PO Last administered on 07/01/19 08:21; Admin Dose 40 MEQ; Start 06/30/19 at 09:00 Enoxaparin Sodium (Lovenox) 30 mg DAILY SC Last administered on 07/01/19 08:57; Admin Dose 30 MG; Start 07/01/19 at 09:00 Vancomycin/Sodium Chloride 250 ml @ 125 mls/hr Q12H IVPB Last administered on 07/01/19 08:12; Admin Dose 125 MLS/HR; Start 06/30/19 at 20:00 Carvedilol (Coreg) 25 mg QAM PO Last administered on 07/01/19 08:20; Admin Dose 25 MG; Start 07/01/19 at 09:00 Assessment/Plan Hospital Course (Demo Recall) Assessment 1. Bilateral pneumonia and congestive cardiac failure with severe hypoxic respiratory failure 2. Possible aspiration component 3. Multiple myeloma Plan 1. Continue supplemental O2 continue pulmonary toilet 2. Continue antibiotics and diuretics 3. aspiration precautions 4. Agree with holding beta-gail. [place] transfer MATIAS HOPE MD, [facility] Jul 01, 2019 11:11
== END 2019-07-01 11:50 | DRG 871 ==
LOC: E/R 01:45 → 6WM 18:02
PROVIDERS: ADMIT Internal Medicine; ATTEND Internal Medicine
PROC: 3E0F7GC Introduction of Other Therapeutic Substance into Respiratory Tract, Via Natural or Artificial Opening (ICD-10-PCS; 2019-06-26)
PROC: 30233N1 Transfusion of Nonautologous Red Blood Cells into Peripheral Vein, Percutaneous Approach (ICD-10-PCS; 2019-06-27)
PROC: 0W9930Z Drainage of Right Pleural Cavity with Drainage Device, Percutaneous Approach (ICD-10-PCS; principal; 2019-06-30)
DX: A41.9 Sepsis, unspecified organism (principal); J18.9 Pneumonia, unspecified organism; J96.01 Acute respiratory failure with hypoxia; I50.43 Acute on chronic combined systolic (congestive) and diastolic (congestive) heart failure; J90 Pleural effusion, not elsewhere classified; I95.9 Hypotension, unspecified; D69.6 Thrombocytopenia, unspecified; E86.0 Dehydration; I11.0 Hypertensive heart disease with heart failure; I34.2 Nonrheumatic mitral (valve) stenosis; D50.9 Iron deficiency anemia, unspecified; E87.6 Hypokalemia; J45.909 Unspecified asthma, uncomplicated; Y95 Nosocomial condition; Z79.82 Long term (current) use of aspirin; Z95.2 Presence of prosthetic heart valve; Z85.79 Personal history of other malignant neoplasms of lymphoid, hematopoietic and related tissues
CPT/HCPCS: 32555; 36415; 36430; 36600; 71045; 80053; 80061; 80069; 80202; 82728; 82803; 83036; 83540; 83605; 83735; 83880; 84132; 84443; 84484; 85025; 85610; 85730; 86850; 86900; 86901; 86920; 87081; 93005; 93306; 94640; 94664; 94667; 96374; 96375; C9113; J0360; J0692; J1650; J1940; J2916; J3370; J3475; J3480; J7030; J7050; P9016